=== PATIENT | female | born 1955 | race Caucasian/White ===

== ENCOUNTER 2016-12-10 22:30 | Observation (INO) | payer OTHER ==
[~2016-12-10] VITALS: Ht 154.9 cm; Wt 81.4 kg
[2016-12-10] MEDS: SODIUM CHLORIDE 0.9% FLUSH 10 ML FLUSH IV FLUSH SCH (21:00)
[~2016-12-10 22:30] MED LIST: ACETAMINOPHEN 500 MG CPLT PO PRN; AMLO5 PO; ATOR1TAB18 PO; CHOL5000 PO; DEXTROSE 50% IN WATER 50 ML VIAL(D50) IV PRN; GARL1000; GLUCAGON 1 MG/ML VIAL OTHER PRN; LOSA100T2 PO; METF500T PO; MIRTA15 PO; NITROGLYCERIN 0.4 MG SL 25 TABS/BTL SL PRN; PROT40TA PO; SODIUM CHLORIDE 0.9% FLUSH 10 ML FLUSH IV FLUSH PRN; ZOLP5TAB3 PO; fish oil PO
[2016-12-10 22:58] VITALS: PULSE 71
[2016-12-10] MEDS: INSULIN ASPART SUPPLEMENTAL SCALE SQ SCH (23:00)
[2016-12-11] VITALS: BP 153/98; PULSE 70; RESP 18; TEMP 97.5; O2SAT 98
[2016-12-11 03:45] VITALS: BP 141/94; PULSE 111; RESP 20; TEMP 96.5; O2SAT 91
[2016-12-11 04:00] VITALS: BP 147/91; PULSE 73; RESP 18; TEMP 97.4; O2SAT 98
[2016-12-11 08:00] VITALS: PULSE 82
[2016-12-11 08:48] VITALS: BP 174/94; PULSE 67; RESP 15; TEMP 98; O2SAT 98
[2016-12-11] MEDS ORDERED: ASPIRIN 325 MG TAB PO SCH (09:00)
[2016-12-11] MEDS ORDERED: PANTOPRAZOLE SOD 40 MG DELAYED RELEASE TAB PO SCH (09:00)
[2016-12-11] MEDS: SODIUM CHLORIDE 0.9% FLUSH 10 ML FLUSH IV FLUSH SCH (09:00)
[2016-12-11 10:59] LABS: POTASSIUM 3.2 MEQ/L (3.5-5.1)
[2016-12-11] MEDS: INSULIN ASPART SUPPLEMENTAL SCALE SQ SCH (11:00)
[2016-12-11 11:02] LABS: BICARBONATE 25.5 MEQ/L (21.0-32.0); MAGNESIUM 2.1 MG/DL (1.5-2.5)
--- NOTE | 2016-12-11 11:31 | HHI.HP ---
[facility] Jesus Manuel Guan MD Admission Diagnosis Chest tightness, hyperkalemia, syncope Diagnoses: (1) Syncope (2) Chest tightness (3) Hypokalemia Travel History International Travel<30 Days: No Contact w/Intl Traveler <30 Da: No Traveled to Known Affected Are: No History of Present Illness This is a 61-year-old female with past medical history of type 2 diabetes and hyperlipidemia who presented to the [place] emergency department yesterday after having a syncopal event while moving sandbags. The patient had waited in her car for about 3 hours and then started to move sandbags. She started to feel lightheaded and dizzy and then had a syncopal event. Just prior to passing out she also had some mild chest tightness. EKG in the emergency department showed sinus tachycardia with a rate of [address] elevation. Troponins have been negative. The patient has not had any further chest pain since being in the hospital. She denies any recent chest pain or chest tightness. The patient did have a negative exercise stress test last year but she states she was barely able to complete the treadmill. The patient does have a strong family history of coronary artery disease with her brother having had an IN at age 58, her mother and uncles also having coronary artery disease. The patient has never smoked. Patient was also noted to have hypokalemia. She denies any nausea vomiting or diarrhea. She states that she does eat a lot of bananas. 10 point review systems otherwise negative. Review of Systems Except as stated in HPI: all other systems reviewed are Neg Past Family Social History Past Medical History Type 2 diabetes, hypercholesterolemia, sinus congestion with history of sinus surgery, hypertension Past Surgical History Biceps tendon repair, , appendectomy, back surgery, sinus surgery Reported Medications Allergies Coded Allergies Type Severity Reaction Last Updated Verified No Known Allergies 12/10/16 No Active Scripts Medications Dose Route/Sig Max Daily Dose Days Date Category Dose Instructions Zolpidem (Zolpidem Tartrate) 5 Mg Tab 5 Mg PO HS PRN 12/10/16 Reported [fish oil] 1,200 Mg PO 12/10/16 Reported Garlic Oil 1000 (Garlic) 1,000 Mg Cap 12/10/16 Reported Norvasc (Amlodipine Besylate) 5 Mg Tab 5 Mg PO DAILY 12/10/16 Reported Atorvastatin (Atorvastatin Calcium) 80 Mg Tab 80 Mg PO HS 12/10/16 Reported Losartan-Hydrochlorothiazide 100-25 Mg Tab 1 Tab PO DAILY 12/10/16 Reported Mirtazapine 15 Mg Tab 15 Mg PO HS 12/10/16 Reported Metformin (Metformin HCl) 500 Mg Tab 500 Mg PO BIDPC 12/10/16 Reported With meals Protonix (Pantoprazole Sodium) 40 Mg Tab 40 Mg PO DAILY 12/10/16 Reported Vitamin D3 (Cholecalciferol) 5,000 Unit Cap 5,000 Units PO DAILY 12/10/16 Reported Allergies: Coded Allergies: No Known Allergies (Unverified , 12/10/16) Family History As per history of present illness Social History She is . No alcohol tobacco or drug use. Physical Exam Vital Signs Vital Signs Date Time Temp Pulse Resp B/P (MAP) Pulse Ox O2 Delivery O2 Flow Rate FiO2 12/11/16 08:48 98.0 67 15 174/94 (120) 98 12/11/16 08:00 82 12/11/16 04:00 97.4 73 18 147/91 (109) 98 12/11/16 03:45 96.5 111 20 141/94 (110) 91 12/11/16 00:00 97.5 70 18 153/98 (116) 98 12/10/16 22:58 71 Physical Exam GENERAL: Well-nourished, well-developed pleasant obese female patient. SKIN: Warm and dry. HEAD: Normocephalic. EYES: No scleral icterus. No injection or drainage. NECK: Supple, trachea midline. No JVD or lymphadenopathy. CARDIOVASCULAR: Regular rate and rhythm without murmurs, gallops, or rubs. RESPIRATORY: Breath sounds equal bilaterally. No accessory muscle use. GASTROINTESTINAL: Abdomen soft, non-tender, nondistended. EXTREMITIES: No cyanosis, or edema. NEUROLOGICAL: Awake, alert, and oriented x 3. Non-focal. Laboratory Laboratory Tests Test 12/10/16 23:10 12/11/16 03:45 Total Creatine Kinase 166 157 Troponin I 0.04 0.02 Blood Urea Nitrogen 16 Creatinine 0.74 Random Glucose 102 Calcium Level 8.4 Magnesium Level 2.1 Sodium Level 143 Potassium Level 3.2 Chloride Level 107 Carbon Dioxide Level 25.5 Anion Gap 11 Estimat Glomerular Filtration Rate 80 Result Diagram: 12/11/16 0345 Caprini VTE Risk Assessment Caprini VTE Risk Assessment: Mod/High Risk (score >= 2) Caprini Risk Assessment Model Point Value = 1 Point Value = 2 Point Value = 3 Point Value = 5 Age 41-60 Minor surgery BMI > 25 kg/m2 Swollen legs Varicose veins or History of unexplained or recurrent spontaneous Oral contraceptives or hormone replacement Sepsis (< 1 month) Serious lung disease, including pneumonia (< 1 month) Abnormal pulmonary function Acute myocardial infarction Congestive heart failure (< 1 month) History of inflammatory bowel disease Medical patient at bed rest Age 61-74 Arthroscopic surgery Major open surgery (> 45 min) Laparoscopic surgery (> 45 min) Malignancy Confined to bed (> 72 hours) Immobilizing plaster cast Central venous access Age >= 75 History of VTE Family history of VTE Factor V Leiden Prothrombin [id number] Lupus anticoagulant Anticardiolipin antibodies Elevated serum homocysteine Heparin-induced thrombocytopenia Other congenital or acquired thrombophilia Stroke (< 1 month) Elective arthroplasty Hip, pelvis, or leg fracture Acute spinal cord injury (< 1 month) Prophylaxis Regimen Total Risk Factor Score Risk Level Prophylaxis Regimen 0-1 Low Early ambulation 2 Moderate Order ONE of the following: *Sequential Compression Device (SCD) *Heparin 5000 units SQ BID 3-4 Higher Order ONE of the following medications: *Heparin 5000 units SQ TID *Enoxaparin/Lovenox 40 mg SQ daily (WT < 150 kg, CrCl > 30 mL/min) *Enoxaparin/Lovenox 30 mg SQ daily (WT < 150 kg, CrCl > 10-29 mL/min) *Enoxaparin/Lovenox 30 mg SQ BID (WT < 150 kg, CrCl > 30 mL/min) AND/OR *Sequential Compression Device (SCD) 5 or more Highest Order ONE of the following medications: *Heparin 5000 units SQ TID (Preferred with Epidurals) *Enoxaparin/Lovenox 40 mg SQ daily (WT < 150 kg, CrCl > 30 mL/min) *Enoxaparin/Lovenox 30 mg SQ daily (WT < 150 kg, CrCl > 10-29 mL/min) *Enoxaparin/Lovenox 30 mg SQ BID (WT < 150 kg, CrCl > 30 mL/min) AND *Sequential Compression Device (SCD) Assessment and Plan Assessment and Plan -Syncope while moving sand bags yesterday. Orthostatics were negative. EKG negative. She did have an episode of chest tightness. Given the strong family history of coronary artery disease and her risk factors believe it is prudent to proceed with Latricia scan stress test. Additionally will check echocardiogram. Would recommend an aspirin daily. -Hypokalemia. Improved to 3.2. Will check magnesium and give additional potassium supplementation. -Type 2 diabetes. Insulin sliding scale for now. -Hyperlipidemia. She states she was recently taken off her cholesterol medication by her primary care physician. -Hypertension resume home medications. -DVT prophylaxis with SCDs. Chrissie Lazar MD Dec 11, 2016 11:31
[2016-12-11] MEDS ORDERED: GLUCAGON 1 MG/ML VIAL OTHER PRN (11:45)
[2016-12-11] MEDS ORDERED: DEXTROSE 50% IN WATER 50 ML VIAL(D50) IV PRN (11:45)
[2016-12-11] MEDS ORDERED: ZOLPIDEM TARTRATE 5 MG TAB PO PRN (11:45)
[2016-12-11] MEDS ORDERED: LOSARTAN 50 MG TAB PO SCH (13:00)
[2016-12-11] MEDS ORDERED: amLODIPine BESYLATE 5 MG TAB PO SCH (13:00)
[2016-12-11] MEDS ORDERED: HYDROCHLOROTHIAZIDE 25 MG TAB PO SCH (13:00)
[2016-12-11 13:35] VITALS: BP 184/93; PULSE 65; RESP 15; TEMP 97.4; O2SAT 98
[2016-12-11] MEDS ORDERED: REGADENOSON INJ 0.4 MG/5 ML SYR IV ONE (15:06)
--- NOTE | 2016-12-11 15:55 | RADRPT ---
EXAM DATE/TIME: 12/11/2016 14:33 [place] COMPARISON: No previous studies available for comparison. INDICATIONS : Chest pain with dyspnea, lightheaded and near syncope. Angina. Abnormal EKG. DOSE: 25.9 mCi Tc99m Myoview at stress. 8.5 mCi Tc99m Myoview at rest. 0.4 mg Lexiscan STRESS SYMPTOMS: Nausea, dyspnea and headache. EJECTION FRACTION: > 70% MEDICAL HISTORY : Hypertension. Diabetes mellitus type 2. SURGICAL HISTORY : Hysterectomy. Appendectomy. ENCOUNTER: Initial ACUITY: 1 day PAIN SCALE: 6/10 LOCATION: Substernal chest TECHNIQUE: The patient underwent pharmacologic stress with infusion of prescribed dose. Continuous ECG tracing was monitored during stress. Gated SPECT imaging was performed after stress and conventional SPECT i maging was performed at rest. The examination was performed on a SPECT/CT scanner, both attenuation and non-corrected datasets were reviewed. FINDINGS: DISTRIBUTION: The maximum perfused segment at stress is in the posteroseptal wall. PERFUSION STUDY: The pattern of perfusion at stress is within normal limits. GATED STUDY: There is intact wall motion and thickening without hypokinetic or dyskinetic segments. CONCLUSION: No appreciable ischemia. RISK CATEGORY: Low (<1% Annual Mortality Rate) Jean Paul Babin MD on December 11, 2016 at 15:53 Board Certified Radiologist. This report was verified electronically.
[2016-12-11] MEDS ORDERED: INSULIN ASPART SUPPLEMENTAL SCALE SQ SCH (16:00)
[2016-12-11] MEDS ORDERED: MIRTAZAPINE 15 MG TAB PO SCH (21:00)
[2016-12-11] MEDS ORDERED: ATORVASTATIN 40 MG TAB PO SCH (21:00)
[2016-12-12] MEDS ORDERED: CHOLECALCIFEROL (VIT D3) 5000 UNIT CAP PO SCH (09:00)
[2016-12-12] MEDS ORDERED: PANTOPRAZOLE SOD 40 MG DELAYED RELEASE TAB PO SCH (09:00)
[2016-12-15] MEDS ORDERED: FISH1200 PO (11:22)
== END 2016-12-11 18:34 | disposition home or self-care (01) ==
LOC: PHEDDLT 22:30 → PH3A 22:40
PROVIDERS: ADMIT Family Medicine; ATTEND Family Medicine
DX: R07.89 Other chest pain (principal); E87.5 Hyperkalemia; R55 Syncope and collapse; E87.6 Hypokalemia; I10 Essential (primary) hypertension; E78.00 Pure hypercholesterolemia, unspecified; R94.31 Abnormal electrocardiogram [ECG] [EKG]; E11.9 Type 2 diabetes mellitus without complications; Z79.84 Long term (current) use of oral hypoglycemic drugs; Z82.49 Family history of ischemic heart disease and other diseases of the circulatory system
CPT/HCPCS: 71010; 71275; 74174; 78452; 80048; 80053; 82550; 82552; 82948; 83735; 84484; 85025; 85610; 85730; 93005; 93017; 96360; 96361; 99285; A9502; G0378; J2785; J7030; Q9967

== ENCOUNTER 2017-09-24 11:10 | Observation (INO) | payer OTHER ==
[2017-09-24] VITALS (11 sets, daily range): BP systolic 155–203; BP diastolic 79–101; PULSE 52–107; RESP 16–22; TEMP 97.8–98.1; O2SAT 94–100
[~2017-09-24] VITALS: Ht 160 cm; Wt 72.0 kg
[~2017-09-24 11:10] MED LIST changes: -ACETAMINOPHEN 500 MG CPLT PO PRN; -ATOR1TAB18 PO; +ATOR80TA45 PO; -DEXTROSE 50% IN WATER 50 ML VIAL(D50) IV PRN; +FISH1200 PO; -GARL1000; +GARL1000 PO; -GLUCAGON 1 MG/ML VIAL OTHER PRN; -NITROGLYCERIN 0.4 MG SL 25 TABS/BTL SL PRN; -SODIUM CHLORIDE 0.9% FLUSH 10 ML FLUSH IV FLUSH PRN; -fish oil PO
[2017-09-24] MEDS ORDERED: PROCHLORPERAZINE INJ 10 MG/2 ML VIAL IV PUSH ONE (11:30)
[2017-09-24] MEDS ORDERED: SODIUM CHLOR 0.9% 1000 ML INJ 1,000 ML IV ONE ×2 (11:30→14:30)
[2017-09-24] MEDS ORDERED: diphenhydrAMINE HCL 50 MG/ML VIAL IV PUSH ONE (11:30)
--- NOTE | 2017-09-24 11:37 | PD ---
HPI Chief Complaint: Altered Mental Status Time Seen by Provider: 11:14 Travel History International Travel<30 days: No Contact w/Intl Traveler<30days: No Traveled to known affect area: No History of Present Illness HPI 62-year-old female that presents to the ED for evaluation of altered mental status and syncope with headache. Patient reports that she has a history of chronic migraine headaches and hypertension. She takes medications for this usually [id number] remedies. She states that yesterday she had a headache but today she had a headache on her way here to get her from the hospital. Apparently she is picking up her as he recently had a CABG and is being released from the hospital today. Apparently patient got here on her own car and on the parking lot and had an episode of possible syncope and nausea and vomiting. She does not really remember what happened and she is not really good historian. She does not even know how she go into the room she is currently in. Apparently she also call 911 but she does not remember this. She is somewhat difficult to get a history. She appears to be somewhat anxious and complains of headache. Per patient she had some numbness and tingling to her arms and legs. This seems to have improved. She states that she has had something like this in the past in 2017 where she was helping load some sandbags. She denies any chest pain or shortness of breath at this time. She denies any other medical issues. No allergies to medication. She rates her pain is 8 out of 10. Did not took anything for this. PFSH Past Medical History Anxiety: Yes Depression: Yes Cardiovascular Problems: Yes High Cholesterol: Yes Diabetes: Yes Patient Takes Glucophage: Yes Diminished Hearing: No Hypertension: Yes Psychiatric: Yes Tetanus Vaccination: > 5 Years Influenza Vaccination: Yes : 3 Para: 3 Past Surgical History Appendectomy: Yes Hysterectomy: Yes Other Surgery: Yes (right bicep) Social History Alcohol Use: Yes (OCASSIONALLY) Tobacco Use: No Substance Use: No Allergies-Medications (Allergen,Severity, Reaction): Coded Allergies: No Known Allergies (Verified Adverse Reaction, Unknown, 09/24/17) Reported Meds & Prescriptions Reported Meds & Active Scripts Active Reported Fish Oil 1200 mg ([place]-3 Fatty Acids) 360 Mg-1,200 Mg Cap 1 Cap PO DAILY Garlic Oil 1000 (Garlic) 1,000 Mg Cap 1,000 Tab PO DAILY Norvasc (Amlodipine Besylate) 5 Mg Tab 5 Mg PO DAILY Atorvastatin (Atorvastatin Calcium) 80 Mg Tab 80 Mg PO HS Losartan-Hydrochlorothiazide 100-25 Mg Tab 1 Tab PO DAILY Mirtazapine 15 Mg Tab 15 Mg PO HS Metformin (Metformin HCl) 500 Mg Tab 500 Mg PO BIDPC With meals Protonix (Pantoprazole Sodium) 40 Mg Tab 40 Mg PO DAILY Vitamin D3 (Cholecalciferol) 5,000 Unit Cap 5,000 Units PO DAILY Review of Systems Except as stated in HPI: all other systems reviewed are Neg Physical Exam Narrative GENERAL: SKIN: Warm and dry. HEAD: Atraumatic. Normocephalic. EYES: Pupils equal and round 4 mms reactive to light and accommodation. No scleral icterus. No injection or drainage. ENT: No nasal bleeding or discharge. Mucous membranes pink and moist. Tongue is midline. No uvula deviation. NECK: Trachea midline. No JVD. CARDIOVASCULAR: Regular rate and rhythm. No murmurs, S3, S4. RESPIRATORY: No accessory muscle use. Clear to auscultation. Breath sounds equal bilaterally. GASTROINTESTINAL: Abdomen soft, non-tender, nondistended. Hepatic and splenic margins not palpable. MUSCULOSKELETAL: Extremities without clubbing, cyanosis, or edema. No obvious deformities. Full range of motion of the upper and lower extremities bilaterally. 2+ pulses bilaterally. NEUROLOGICAL: Awake and alert and oriented 4. No obvious cranial nerve deficits. Motor grossly within normal limits. Five out of 5 muscle strength in the arms and legs. Normal speech. PSYCHIATRIC: Anxious mood and affect; insight and judgment normal. Data Data Last Documented VS Vital Signs Date Time Temp Pulse Resp B/P (MAP) Pulse Ox O2 Delivery O2 Flow Rate FiO2 09/24/17 13:00 97.8 78 17 175/89 (117) 99 Room Air Orders Orders Electrocardiogram (09/24/17 11:18) Complete Blood Count With Diff (09/24/17 11:18) Comprehensive Metabolic Panel (09/24/17 11:18) Ckmb (Isoenzyme) Profile (09/24/17 11:18) Troponin I (09/24/17 11:18) Prothrombin Time / Inr (Pt) (09/24/17 11:18) Act Partial Throm Time (Ptt) (09/24/17 11:18) Lipase (09/24/17 11:18) Urinalysis - C+S If Indicated (09/24/17 11:18) Magnesium (Mg) (09/24/17 11:18) Thyroid Stimulating Hormone (09/24/17 11:18) Chest, Single Ap (09/24/17 11:18) Ct Brain W/O Iv Contrast(Rout) (09/24/17 11:18) Iv Access Insert/Monitor (09/24/17 11:18) Ecg Monitoring (09/24/17 11:18) Oximetry (09/24/17 11:18) Orthostatic Vital Signs (09/24/17 11:18) Sodium Chlor 0.9% 1000 Ml Inj (Ns 1000 M (09/24/17 11:30) Prochlorperazine Inj (Compazine Inj) (09/24/17 11:30) Diphenhydramine Inj (Benadryl Inj) (09/24/17 11:30) Ketorolac Inj (Toradol Inj) (09/24/17 12:15) Clonidine (Catapres) (09/24/17 12:15) CKMB (09/24/17 11:30) CKMB% (09/24/17 11:30) Place In Observation (09/24/17 ) Vital Signs (Adult) NA.Q4H (09/24/17 13:23) Activity Oob With Assistance (09/24/17 13:23) Break Off Worker / Telemetry NA.Q8H (09/24/17 13:23) Diet Clear Liquid (09/24/17 Lunch) Mri Brain W/O Contrast (09/24/17 ) Us Carotid Arteries Comp Bilat (09/24/17 ) Break Off Worker / Telemetry NA.Q8H (09/24/17 13:23) Portable Eeg (09/24/17 ) Consult Neurology (09/24/17 ) Echo 2d Comp With Doppler (09/24/17 ) Lumbar Puncture (09/24/17 ) Vital Signs (Adult) .On admission (09/24/17 13:26) Notify Radiology (09/24/17 13:26) Csf Index (09/24/17 13:26) Glucose, Csf (09/24/17 13:26) Csf Cell Count + Differential (09/24/17 13:26) Glucose, Csf (09/24/17 ) Total Protein, Csf (09/24/17 13:26) Csf Culture And Gram Stain (09/24/17 13:26) (Hub Use Only)Inp Phy Cons/Ref (09/24/17 ) Consult Pt Eval & Treat (09/24/17 13:30) Ot Request For Service (09/24/17 13:30) Speech Therapy Consult-Eval/Tx (09/24/17 13:30) Nursing Bedside Swallow Assess .ONCE (09/24/17 13:30) Atorvastatin (Lipitor) (09/24/17 21:00) Pantoprazole (Protonix) (09/25/17 09:00) (Nf) Garlic (Garlic Oil 1000) (09/25/17 09:00) (Nf) [place]-3 Fatty Acids (Fish Oil 1200 (09/25/17 09:00) Ns (Bolus) Inj (09/24/17 13:45) Labs Laboratory Tests Test 09/24/17 11:30 09/24/17 13:30 White Blood Count 10.2 TH/MM3 Red Blood Count 5.69 MIL/MM3 Hemoglobin 16.8 GM/DL Hematocrit 48.2 % Mean Corpuscular Volume 84.6 FL Mean Corpuscular Hemoglobin 29.5 PG Mean Corpuscular Hemoglobin Concent 34.8 % Red Cell Distribution Width 13.4 % Platelet Count 404 TH/MM3 Mean Platelet Volume 7.4 FL Neutrophils (%) (Auto) 63.8 % Lymphocytes (%) (Auto) 25.0 % Monocytes (%) (Auto) 6.1 % Eosinophils (%) (Auto) 4.4 % Basophils (%) (Auto) 0.7 % Neutrophils # (Auto) 6.5 TH/MM3 Lymphocytes # (Auto) 2.6 TH/MM3 Monocytes # (Auto) 0.6 TH/MM3 Eosinophils # (Auto) 0.5 TH/MM3 Basophils # (Auto) 0.1 TH/MM3 CBC Comment DIFF FINAL Differential Comment Prothrombin Time 10.1 SEC Prothromb Time International Ratio 1.0 RATIO Activated Partial Thromboplast Time 23.6 SEC Blood Urea Nitrogen 9 MG/DL Creatinine 1.06 MG/DL Random Glucose 162 MG/DL Total Protein 8.3 GM/DL Albumin 4.6 GM/DL Calcium Level 9.4 MG/DL Magnesium Level 2.2 MG/DL Alkaline Phosphatase 76 U/L Aspartate Amino Transf (AST/SGOT) 36 U/L Alanine Aminotransferase (ALT/SGPT) 53 U/L Total Bilirubin 0.5 MG/DL Sodium Level 142 MEQ/L Potassium Level 3.5 MEQ/L Chloride Level 108 MEQ/L Carbon Dioxide Level 16.7 MEQ/L Anion Gap 17 MEQ/L Estimat Glomerular Filtration Rate 52 ML/MIN Total Creatine Kinase 167 U/L Creatine Kinase MB 3.2 NG/ML Troponin I LESS THAN 0.02 NG/ML Lipase 137 U/L Thyroid Stimulating Hormone 3rd Gen 1.750 uIU/ML MDM Medical Decision Making Medical Screen Exam Complete: Yes Emergency Medical Condition: Yes Medical Record Reviewed: Yes Interpretation(s) CBC & BMP Diagram 09/24/17 11:30 Total Protein 8.3 H, Albumin 4.6, Calcium Level 9.4, Magnesium Level 2.2, Alkaline Phosphatase 76, Aspartate Amino Transf (AST/SGOT) 36, Alanine Aminotransferase (ALT/SGPT) 53, Total Bilirubin 0.[address] 09/24/17 1118 Signed Impressions: CONCLUSION: 1. Unremarkable CT scan of the brain. Chest X-Ray 09/24/17 1118 Signed Impressions: CONCLUSION: No acute cardiopulmonary findings. troponin and CKMB negative EKG shows sinus rhythm with no sign of acute ischemia or arrhythmia read by me and attending. Differential Diagnosis Syncope versus headache versus migraine headache versus arrhythmia versus ACS versus hypo-glycemia versus hypertension Narrative Course 62-year-old female that presents to the ED for evaluation of syncope. Patient was properly examined and was found to have signs and symptoms consistent with appears to be syncope and what appears to be headache. Unclear etiology of the symptoms at this time. There is some concern for acute disease. I did review her records and she was here for evaluation of chest pain and syncope and had a chest pain center evaluation within normal stress test. At this time labs and imaging will be ordered. Patient was given IV fluids, Compazine and Benadryl for her headache. Per patient the headache is similar to her previous headaches. We will do CT as she had a syncopal episode. Labs and imaging were done. Patient had improvement of symptoms after pain medication especially of the headache. Unclear as to what happened. Patient has never had a syncopal workup. She was here for chest pain workup last time. The recommend evaluation for syncope and altered mental status secondary to unclear etiology of the symptoms. Case discussed with my attending Dr. Haynes who was made aware of findings and agrees with plan. Case discussed with Dr. Finch who agrees with admission but wants me to do a consult to neurology as well as a EEG per him. Diagnosis Primary Impression: Syncope Qualified Codes: R55 - Syncope and collapse Additional Impression: Altered mental status Qualified Codes: R41.82 - Altered mental status, unspecified Admitting Information Admitting Physician Requests: Observation Wild Castro Sep 24, 2017 11:37
[2017-09-24 11:50] LABS: AUTOMATED NEUTROPHIL # 6.5 TH/MM3 (1.8-7.7); BASOPHIL # 0.1 TH/MM3 (0-0.2); BASOPHIL % 0.7 % (0.0-2.0); EOSINOPHIL # 0.5 TH/MM3 (0-0.4); EOSINOPHIL % 4.4 % (0.0-4.0); HEMATOCRIT 48.2 % (35.0-46.0); HEMOGLOBIN 16.8 GM/DL (11.6-15.3); LYMPHOCYTE # 2.6 TH/MM3 (1.0-4.8); MEAN CELL VOLUME 84.6 FL (80.0-100.0); MEAN CORPUSCULAR HEMOGLOBIN 29.5 PG (27.0-34.0); MEAN CORPUSCULAR HGB CONC 34.8 % (32.0-36.0); MEAN PLATELET VOLUME 7.4 FL (7.0-11.0); MONO % 6.1 % (0.0-8.0); MONOCYTE # 0.6 TH/MM3 (0-0.9); NEUT % 63.8 % (16.0-70.0); PLATELET COUNT 404 TH/MM3 (150-450); RED BLOOD COUNT 5.69 MIL/MM3 (4.00-5.30); RED CELL DISTRIBUTION WIDTH 13.4 % (11.6-17.2); WHITE BLOOD COUNT 10.2 TH/MM3 (4.0-11.0)
--- NOTE | 2017-09-24 11:53 | RADRPT ---
EXAM DATE: 09/24/2017 11:46 AM EDT AGE/SEX: 62 years / Female INDICATIONS: Short of breath. CLINICAL DATA: This is the patient's initial encounter. Patient reports that signs and symptoms have been present for 1 day and indicates a pain score of 0/10. MEDICAL/SURGICAL HISTORY: . Hypertension. Diabetes mellitus type 2. . Hysterectomy. Appendect shena COMPARISON: [facility], CHEST SINGLE AP, 12/10/2016. . FINDINGS: A single AP view of the chest demonstrates the lungs to be symmetrically aerated without evidence of mass, infiltrate or effusion. The cardiomediastinal contours are unremarkable. Osseous structures a re intact. CONCLUSION: No acute cardiopulmonary findings. Electronically signed by: Bernard Allred MD 09/24/2017 11:52 AM EDT
[2017-09-24 11:58] LABS: PROTHROMBIN TIME - PATIENT 10.1 SEC (9.8-11.6)
--- NOTE | 2017-09-24 12:04 | RADRPT ---
EXAM DATE: 09/24/2017 11:58 AM EDT AGE/SEX: 62 years / Female INDICATIONS: Syncope. CLINICAL DATA: This is the patient's initial encounter. Patient reports that signs and symptoms have been present for 1 day and indicates a pain score of 4/10. MEDICAL/SURGICAL HISTORY: Hypertension. Diabetes. Appendectomy. Hysterectomy. RADIATION DOSE: 36.22 CTDI (mGy) COMPARISON: No prior exams available for comparison. TECHNIQUE: CT of the head without contrast. Using automated exposure control and adjustment of the mA and/or kV according to patient size, radiation dose was kept as low as reasonably achievable to ob tain optimal diagnostic quality images. DICOM format image data is available electronically for revi ew and comparison. FINDINGS: Cerebrum: The ventricles are normal for age. No evidence of midline shift, mass lesion, hemorrhage or acute infarction. No extraaxial fluid collections are seen. Posterior Fossa: The cerebellum and brainstem are intact. The 4th ventricle is midline. The cerebe llopontine angle is unremarkable. Extracranial: The visualized portion of the orbits is intact. Skull: The calvaria is intact. No evidence of skull fracture. CONCLUSION: 1. Unremarkable CT scan of the brain. Electronically signed by: Chucho Field MD 09/24/2017 12:03 PM EDT
[2017-09-24 12:05] LABS: ALBUMIN 4.6 GM/DL (3.4-5.0); ALT (GPT) 53 U/L (10-53); AST (GOT) 36 U/L (15-37); BICARBONATE 16.7 MEQ/L (21.0-32.0); BLOOD UREA NITROGEN 9 MG/DL (7-18); CALCIUM 9.4 MG/DL (8.5-10.1); CHLORIDE 108 MEQ/L (98-107); CREATININE 1.06 MG/DL (0.50-1.00); GLOMERULAR FILTRATION RATE 52 ML/MIN (>89); GLUCOSE,RANDOM 162 MG/DL (74-106); MAGNESIUM 2.2 MG/DL (1.5-2.5); SODIUM (NA) 142 MEQ/L (136-145)
[2017-09-24 12:15] LABS: ALKALINE PHOSPHATASE 76 U/L (45-117); TOTAL BILIRUBIN ADULT 0.5 MG/DL (0.2-1.0); TOTAL PROTEIN 8.3 GM/DL (6.4-8.2); TROPONIN I LESS THAN 0.02 NG/ML (0.02-0.05)
[2017-09-24] MEDS ORDERED: cloNIDine HCL 0.1 MG TAB PO ONE (12:15)
[2017-09-24] MEDS ORDERED: KETOROLAC TROMETHAMINE 30 MG/ML (IVP) VIAL IV PUSH ONE (12:15)
--- NOTE | 2017-09-24 13:41 | HHI.HP ---
[facility] Primary [facility] Physician Unknown Admission Diagnosis Diagnoses: Chief Complaint: headache/LOC Travel History International Travel<30 Days: No Contact w/Intl Traveler <30 Da: No Traveled to Known Affected Are: No History of Present Illness 62-year-old white female being admitted for loss of consciousness. Patient was in her usual state of health until she started experiencing a headache and some vomiting yesterday. This subsided on its own. This morning she was on her way to the hospital to pick her own up but she again experienced a occipital headache with some nausea and vomiting along with realizing she had difficulty swallowing. She reports having vague memory when she arrives into the hospital parking lot and was sitting in the car when she thinks she had passed out, she had not try to get out the vehicle at that time. She was able to speed dial her who was hospitalized here, then called his daughter and family member saying that she stuck in the parking lot. ED emergency response team was called. During this timeframe patient says she vaguely remembers trying to honked the horn, had some left-sided numbness and weakness -overall the entire incident is a memory blur. The only thing the patient clearly recalls is fully coming to consciousness inside the emergency department, at which point she had to take a few minutes to regain her orientation anyway. Says at this time she still has a little headache but is not vomiting anymore. She denies recalling any slurred speech. She thinks she had passed out but is unsure for how long. Denies any tongue biting or urinary incontinence. Patient denies this ever occurring in the past except for one time when she was lifting sandbags on her own and had passed out multiple times. no acute vision changes. In the emergency [employer] head CT was performed which was negative. EKG was performed which I independently reviewed and shows no acute changes. Chest x- ray is negative. Blood work overall is also negative. Patient denies ever having any strokes or mini strokes or abnormal heart rhythms or heart catheterizations in the past. Patient does admit that she was discontinued off of her atorvastatin due to impaired LFTs. Currently her LFTs are good. Review of Systems Except as stated in HPI: all other systems reviewed are Neg Past Family Social History Past Medical History diabetes, HTN cholesterol Acid reflux Past Surgical History sinus surgery right biceps surgery carpal tunnel BL L4-L5 back surgery appendectomy 4 bladder surgeries Allergies: Coded Allergies: No Known Allergies (Verified Allergy, Unknown, 09/24/17) Family History mother [place] Social History denies drinking, drinks ETOH occasionally, denies illicit drug use Physical Exam Vital Signs Vital Signs Date Time Temp Pulse Resp B/P (MAP) Pulse Ox O2 Delivery O2 Flow Rate FiO2 09/24/17 11:40 97 20 191/100 (130) 96 20 181/101 (127) 100 22 195/101 (132) 09/24/17 11:25 89 18 99 Room Air 09/24/17 11:25 18 99 Room Air 09/24/17 11:10 97.8 107 22 203/92 (129) 100 Physical Exam VS: afebrile GENERAL: Sitting in bed, awake, alert, no acute distress, ambulating down to the bathroom on her own with nursing without any gait disturbances SKIN: Warm and dry. EYES: Pupils equal and round. No scleral icterus. No injection or drainage. ENT: No nasal bleeding or discharge. Mucous membranes pink and moist. CARDIOVASCULAR: Regular rate and rhythm. no murmurs RESPIRATORY: No accessory muscle use. Clear to auscultation. Breath sounds equal bilaterally. GASTROINTESTINAL: Abdomen soft, non-tender, nondistended. Extremities: No clubbing, cyanosis, or edema. No obvious deformities. MUSCULOSKELETAL: grossly intact ROM with 5/5 strength in upper and lower extremities proximally; adequate muscle bulk and tone for age and habitus NEUROLOGICAL: Awake and alert. No obvious cranial nerve deficits. No facial droop nor slurred speech noted. 2+ patellar reflexes bilaterally. No facial droop, no slurred speech, uvula and tongue in midline. Finger to nose to finger intact bilaterally. PSYCHIATRIC: Appropriate mood and affect; insight and judgment normal. Laboratory Laboratory Tests Test 09/24/17 11:30 White Blood Count 10.2 Red Blood Count 5.69 Hemoglobin 16.8 Hematocrit 48.2 Mean Corpuscular Volume 84.6 Mean Corpuscular Hemoglobin 29.5 Mean Corpuscular Hemoglobin Concent 34.8 Red Cell Distribution Width 13.4 Platelet Count 404 Mean Platelet Volume 7.4 Neutrophils (%) (Auto) 63.8 Lymphocytes (%) (Auto) 25.0 Monocytes (%) (Auto) 6.1 Eosinophils (%) (Auto) 4.4 Basophils (%) (Auto) 0.7 Neutrophils # (Auto) 6.5 Lymphocytes # (Auto) 2.6 Monocytes # (Auto) 0.6 Eosinophils # (Auto) 0.5 Basophils # (Auto) 0.1 CBC Comment DIFF FINAL Differential Comment Prothrombin Time 10.1 Prothromb Time International Ratio 1.0 Activated Partial Thromboplast Time 23.6 Blood Urea Nitrogen 9 Creatinine 1.06 Random Glucose 162 Total Protein 8.3 Albumin 4.6 Calcium Level 9.4 Magnesium Level 2.2 Alkaline Phosphatase 76 Aspartate Amino Transf (AST/SGOT) 36 Alanine Aminotransferase (ALT/SGPT) 53 Total Bilirubin 0.5 Sodium Level 142 Potassium Level 3.5 Chloride Level 108 Carbon Dioxide Level 16.7 Anion Gap 17 Estimat Glomerular Filtration Rate 52 Total Creatine Kinase 167 Creatine Kinase MB 3.2 Troponin I LESS THAN 0.02 Lipase 137 Thyroid Stimulating Hormone 3rd Gen 1.750 Result Diagram: 09/24/17 1130 09/24/17 1130 Imaging Last Impressions Head CT 09/24/17 1118 Signed Impressions: CONCLUSION: 1. Unremarkable CT scan of the brain. Chest X-Ray 09/24/171117 Signed Impressions: CONCLUSION: No acute cardiopulmonary findings. Caprini VTE Risk Assessment Caprini VTE Risk Assessment: Mod/High Risk (score >= 2) VTE Pharm Contraindication: High risk for bleeding Caprini Risk Assessment Model Point Value = 1 Point Value = 2 Point Value = 3 Point Value = 5 Age 41-60 Minor surgery BMI > 25 kg/m2 Swollen legs Varicose veins or History of unexplained or recurrent spontaneous Oral contraceptives or hormone replacement Sepsis (< 1 month) Serious lung disease, including pneumonia (< 1 month) Abnormal pulmonary function Acute myocardial infarction Congestive heart failure (< 1 month) History of inflammatory bowel disease Medical patient at bed rest Age 61-74 Arthroscopic surgery Major open surgery (> 45 min) Laparoscopic surgery (> 45 min) Malignancy Confined to bed (> 72 hours) Immobilizing plaster cast Central venous access Age >= 75 History of VTE Family history of VTE Factor V Leiden Prothrombin [id number] Lupus anticoagulant Anticardiolipin antibodies Elevated serum homocysteine Heparin-induced thrombocytopenia Other congenital or acquired thrombophilia Stroke (< 1 month) Elective arthroplasty Hip, pelvis, or leg fracture Acute spinal cord injury (< 1 month) Prophylaxis Regimen Total Risk Factor Score Risk Level Prophylaxis Regimen 0-1 Low Early ambulation 2 Moderate Order ONE of the following: *Sequential Compression Device (SCD) *Heparin 5000 units SQ BID 3-4 Higher Order ONE of the following medications: *Heparin 5000 units SQ TID *Enoxaparin/Lovenox 40 mg SQ daily (WT < 150 kg, CrCl > 30 mL/min) *Enoxaparin/Lovenox 30 mg SQ daily (WT < 150 kg, CrCl > 10-29 mL/min) *Enoxaparin/Lovenox 30 mg SQ BID (WT < 150 kg, CrCl > 30 mL/min) AND/OR *Sequential Compression Device (SCD) 5 or more Highest Order ONE of the following medications: *Heparin 5000 units SQ TID (Preferred with Epidurals) *Enoxaparin/Lovenox 40 mg SQ daily (WT < 150 kg, CrCl > 30 mL/min) *Enoxaparin/Lovenox 30 mg SQ daily (WT < 150 kg, CrCl > 10-29 mL/min) *Enoxaparin/Lovenox 30 mg SQ BID (WT < 150 kg, CrCl > 30 mL/min) AND *Sequential Compression Device (SCD) Assessment and Plan Assessment and Plan 62-year-old white female being entered for loss of consciousness and strokelike symptoms. Loss of consciousness -Seizure cannot be ruled out, nor can cardiovascular syncope.Be ruled out -EKG unremarkable, will place on telemetry -EEG ordered, neurology consultation to help decipher whether patient truly needs antiepileptic drug treatment and/or seizure precautions upon discharge Headache -migraine vs possible ICH -Need to rule out brain bleed given triad of headache nausea vomiting and EGG PRODUCER alteration -Head CT is negative, discussed with interventional radiology, ordering lumbar puncture and sequential CSF cell counts - if significantly elevated RBCs persistent or xanthochromia present then consult NSG -neurochecks; if symptoms recur repeat STAT CT head Left-sided numbness/tingling/weakness -In the context of above need to rule out acute stroke -Head MRI, carotid ultrasounds, echocardiogram, telemetry -May start aspirin once LP rules out possibility of brain bleed, permissive HTN for now until CSF results and MRI results return -PT/OT/ST Diabetes -Low-dose sliding scale with Accu-Cheks Hypertension -Engage in permissive hypertension for now unless neurology disagrees scds Emeka Reveles MD Sep 24, 2017 13:41
[2017-09-24 14:11] LABS: AMORPHOUS SEDIMENT, URINE RARE; BILIRUBIN, URINE NEG (NEG); BLOOD, URINE NEG (NEG); GLUCOSE,URINE NEG (NEG); HYALINE CAST, URINE 4 /lpf (RARE); KETONE, URINE NEG (NEG); MUCUS URINE FEW /lpf (OCC); NITRITE,URINE NEG (NEG); SQUAMOUS EPITHELIAL CELL URINE 1 /hpf (0-5); URINE COLOR YELLOW (YELLW/STRAW); URINE LEUKOCYTE ESTERASE NEG (NEG)
--- NOTE | 2017-09-24 14:58 | PD ---
Data Data Last Documented VS Vital Signs Date Time Temp Pulse Resp B/P (MAP) Pulse Ox O2 Delivery O2 Flow Rate FiO2 09/24/17 13:14 17 09/24/17 13:00 97.8 78 175/89 (117) 99 Room Air Orders Orders Electrocardiogram (09/24/17 11:18) Complete Blood Count With Diff (09/24/17 11:18) Comprehensive Metabolic Panel (09/24/17 11:18) Ckmb (Isoenzyme) Profile (09/24/17 11:18) Troponin I (09/24/17 11:18) Prothrombin Time / Inr (Pt) (09/24/17 11:18) Act Partial Throm Time (Ptt) (09/24/17 11:18) Lipase (09/24/17:18) Urinalysis - C+S If Indicated (09/24/17 11:18) Magnesium (Mg) (09/24/17 11:18) Thyroid Stimulating Hormone (09/24/17 11:18) Chest, Single Ap (09/24/17 11:18) Ct Brain W/O Iv Contrast(Rout) (09/24/17 11:18) Iv Access Insert/Monitor (09/24/17 11:18) Ecg Monitoring (09/24/17 11:18) Oximetry (09/24/17 11:18) Orthostatic Vital Signs (09/24/17 11:18) Sodium Chlor 0.9% 1000 Ml Inj (Ns 1000 M (09/24/17 11:30) Prochlorperazine Inj (Compazine Inj) (09/24/17 11:30) Diphenhydramine Inj (Benadryl Inj) (09/24/17 11:30) Ketorolac Inj (Toradol Inj) (09/24/17 12:15) Clonidine (Catapres) (09/24/17 12:15) CKMB (09/24/17 11:30) CKMB% (09/24/17 11:30) Place In Observation (09/24/17 ) Vital Signs (Adult) NA.Q4H (09/24/17 13:23) Activity Oob With Assistance (09/24/17 13:23) Cork Slabs Sawyer / Telemetry NA.Q8H (09/24/17 13:23) Diet Clear Liquid (09/24/17 Lunch) Mri Brain W/O Contrast (09/24/17 ) Us Carotid Arteries Comp Bilat (09/24/17 ) Cork Slabs Sawyer / Telemetry NA.Q8H (09/24/17 13:23) Portable Eeg (09/24/17 ) Consult Neurology (09/24/17 ) Echo 2d Comp With Doppler (09/24/17 ) Lumbar Puncture (09/24/17 ) Vital Signs (Adult) .On admission (09/24/17 13:26) Notify Radiology (09/24/17 13:26) Csf Index (09/24/17 13:26) Glucose, Csf (09/24/17 13:) Csf Cell Count + Differential (09/24/17:) Glucose, Csf (09/24/17 ) Total Protein, Csf (09/24/17 13:) Csf Culture And Gram Stain (09/24/17:) (Hub Use Only)Inp Phy Cons/Ref (09/24/17 ) Consult Pt Eval & Treat (09/24/17 13:30) Ot Request For Service (09/24/17 13:30) Speech Therapy Consult-Eval/Tx (09/24/17 13:30) Nursing Bedside Swallow Assess .ONCE (09/24/17 13:30) Atorvastatin (Lipitor) (09/24/17 21:00) Pantoprazole (Protonix) (09/25/17 09:00) (Nf) Garlic (Garlic Oil 1000) (09/25/17 09:00) (Nf) Lane-3 Fatty Acids (Fish Oil 1200 (09/25/17 09:00) Sodium Chlor 0.9% 1000 Ml Inj (Ns 1000 M (09/24/17 14:30) Neuro Checks . ORDERED (09/24/17 13:42) Admit Order (Ed Use Only) (09/24/17 13:45) Labs Laboratory Tests Test 09/24/17 11:30 09/24/17 13:30 White Blood Count 10.2 TH/MM3 Red Blood Count 5.69 MIL/MM3 Hemoglobin 16.8 GM/DL Hematocrit 48.2 % Mean Corpuscular Volume 84.6 FL Mean Corpuscular Hemoglobin 29.5 PG Mean Corpuscular Hemoglobin Concent 34.8 % Red Cell Distribution Width 13.4 % Platelet Count 404 TH/MM3 Mean Platelet Volume 7.4 FL Neutrophils (%) (Auto) 63.8 % Lymphocytes (%) (Auto) 25.0 % Monocytes (%) (Auto) 6.1 % Eosinophils (%) (Auto) 4.4 % Basophils (%) (Auto) 0.7 % Neutrophils # (Auto) 6.5 TH/MM3 Lymphocytes # (Auto) 2.6 TH/MM3 Monocytes # (Auto) 0.6 TH/MM3 Eosinophils # (Auto) 0.5 TH/MM3 Basophils # (Auto) 0.1 TH/MM3 CBC Comment DIFF FINAL Differential Comment Prothrombin Time 10.1 SEC Prothromb Time International Ratio 1.0 RATIO Activated Partial Thromboplast Time 23.6 SEC Blood Urea Nitrogen 9 MG/DL Creatinine 1.06 MG/DL Random Glucose 162 MG/DL Total Protein 8.3 GM/DL Albumin 4.6 GM/DL Calcium Level 9.4 MG/DL Magnesium Level 2.2 MG/DL Alkaline Phosphatase 76 U/L Aspartate Amino Transf (AST/SGOT) 36 U/L Alanine Aminotransferase (ALT/SGPT) 53 U/L Total Bilirubin 0.5 MG/DL Sodium Level 142 MEQ/L Potassium Level 3.5 MEQ/L Chloride Level 108 MEQ/L Carbon Dioxide Level 16.7 MEQ/L Anion Gap 17 MEQ/L Estimat Glomerular Filtration Rate 52 ML/MIN Total Creatine Kinase 167 U/L Creatine Kinase MB 3.2 NG/ML Troponin I LESS THAN 0.02 NG/ML Lipase 137 U/L Thyroid Stimulating Hormone 3rd Gen 1.750 uIU/ML Urine Color YELLOW Urine Turbidity HAZY Urine pH 7.0 Urine Specific Zortman 1.008 Urine Protein 100 mg/dL Urine Glucose (UA) NEG mg/dL Urine Ketones NEG mg/dL Urine Occult Blood NEG Urine Nitrite NEG Urine Bilirubin NEG Urine Urobilinogen LESS THAN 2 mg/dL Urine Leukocyte Esterase NEG Urine RBC 1 /hpf Urine WBC 1 /hpf Urine Squamous Epithelial Cells 1 /hpf Urine Amorphous Sediment RARE Urine Hyaline Casts 4 /lpf Urine Mucus FEW /lpf Microscopic Urinalysis Comment CULT NOT INDICATED MDM Supervised Visit with RASHID: Yes Narrative Course I, Dr. Lane, have reviewed the advance practice practitioner's documentation and am in agreement, met with the patient face to face, made the diagnosis, and the medical decision making was done by me. *My assessment and Findings: Patient had a syncopal type event. The details are somewhat murky. Extensive workup here was done. Patient will be hospitalized to the hospitalist for further evaluation. Diagnosis Primary Impression: Syncope Qualified Codes: R55 - Syncope and collapse Additional Impression: Altered mental status Qualified Codes: R41.82 - Altered mental status, unspecified Oumar Lane MD Sep 24, 2017 14:58
--- NOTE | 2017-09-24 16:15 | RADRPT ---
EXAM DATE: 09/24/2017 4:12 PM EDT AGE/SEX: 62 years / Female INDICATIONS: Patient experiencing headache with vomiting and passed out. CLINICAL DATA: This is the patient's initial encounter. Patient reports that signs and symptoms have been present for 2 days and indicates a pain score of 4/10. MEDICAL/SURGICAL HISTORY: Diabetes. Hypertension. CholesterolAcid Reflux . Sinus surgeryRight biceps surgeryCarpal Tunnel BLL4-5 back surgeryAppendectomyC-section4 Bladder surgeries COMPARISON: No prior exams available for comparison. FLUORO TIME (min): .2 IMAGE SERIES: 1 ACCESS SITE: L4-5 LUMBAR PUNCTURE TIME: 1550 hours OPENING PRESSURE: 23.5 cm of water FLUID: Total volume of 11 cc of clear fluid was removed. Fluid was sent to lab for ordered studies. . . PROCEDURE: 1. Fluoroscopic guided lumbar puncture. 2. Recording of opening pressure. The risks, benefits and alternatives to the procedure were explained and verbal and written consent w as obtained. The site was prepped in sterile fashion. Full sterile technique was used, including ca p, mask, sterile gloves and gown and a large sterile sheet. Hand hygiene and 2% chlorhexidine and/or betadine/alcohol prep was utilized per protocol for cutaneous antisepsis. The skin and subcutaneous tissues were infiltrated with local anesthetic solution. With fluoroscopic guidance the lumbar thecal sac was punctured at the above level described above and the opening pressure was recorded. The above described fluid was removed without difficulty. The patient tolerated the procedure well and there were no complications. CONCLUSION: 1. Uncomplicated fluoroscopically guided lumbar puncture with pressures as above. Electronically signed by: Everardo Goldberg MD 09/24/2017 4:14 PM EDT
[2017-09-24 16:34] LABS: TOTAL PROTEIN,CSF 37.4 MG/DL (15.0-45.0)
[2017-09-24 18:56] LABS: CSF LYMPHOCYTES 70 %; CSF MONOCYTES 30 %; CSF NEUTROPHILS 0 %; RBC TUBE #1 3 /MM3; SUPERNATE COLOR TUBE #1 CLEAR (CLEAR); WBC TUBE #1 3 /MM3 (0-10)
[2017-09-24 19:01] LABS: RBC TUBE #2 2 /MM3; WBC TUBE #2 2 /MM3 (0-10)
[2017-09-24 19:02] LABS: CSF LYMPHOCYTES 80 %; CSF MONOCYTES 20 %; CSF NEUTROPHILS 0 %
[2017-09-24 19:04] LABS: CSF NEUTROPHILS 0 %; RBC TUBE #3 2 /MM3; WBC TUBE #3 3 /MM3 (0-10)
[2017-09-24 19:05] LABS: CSF LYMPHOCYTES 75 %; CSF MONOCYTES 25 %
[2017-09-24 19:06] LABS: RBC TUBE #4 3 /MM3; WBC TUBE #4 6 /MM3 (0-10)
[2017-09-24 19:07] LABS: CSF EOSINOPHILS 1 %; CSF LYMPHOCYTES 78 %; CSF MONOCYTES 21 %; CSF NEUTROPHILS 0 %
[2017-09-24] MEDS: ATORVASTATIN 80 MG TAB PO SCH (20:22)
--- NOTE | 2017-09-24 22:52 | RADRPT ---
EXAM DATE: 09/24/2017 10:33 PM EDT AGE/SEX: 62 years / Female INDICATIONS: Transischemic attack. CLINICAL DATA: This is the patient's initial encounter. Patient reports that signs and symptoms have been present for 1 day and indicates a pain score of 0/10. MEDICAL/SURGICAL HISTORY: . Hypercholesterol. HTN. Diabetic. Appendectomy. Hysterectomy. Le ft foot surgery. COMPARISON: [facility], US ABDOMEN LIVER, 08/06/2017. . VELOCITY PARAMETERS: ICA/CCA Ratio: Right 1.14 , Left 3.39 ICA: Right 123 cm/sec, Left 309 cm/sec CCA: Right 108 cm/sec, Left 91 cm/sec ECA: Right 199 cm/sec, Left 391 cm/sec Vertebral: Right 79 cm/sec antegrade, Left 64 cm/sec antegrade FINDINGS: Right Carotid: Mild arteriosclerotic plaque is visualized.The waveforms are within normal limits. Left Carotid: Mild arteriosclerotic plaque is visualized. There is marked elevation of the velocitie s and ratios on the left corresponding to greater than 70% stenosis. Other: None. CONCLUSION: Right Internal Carotid Artery: No evidence of hemodynamically significant lesion with less than 50% s tenosis. Left Internal Carotid Artery: Findings of high-grade stenosis greater than 70%. CT angiography of the cervicobrachial arch and carotid arteries is recommended for further evaluation if clinically indica rachelle. Electronically signed by: Roque Cisneros MD 09/24/2017 10:51 PM EDT
[2017-09-25] VITALS (9 sets, daily range): BP systolic 143–198; BP diastolic 83–96; PULSE 71–201; RESP 16–18; TEMP 98–98.5; O2SAT 95–98
[2017-09-25] MEDS: PANTOPRAZOLE SOD 40 MG DELAYED RELEASE TAB PO SCH (07:48)
[2017-09-25] MEDS: LOSARTAN 50 MG TAB PO SCH (07:48)
--- NOTE | 2017-09-25 07:53 | HHI.PR ---
Subjective Remarks Pt seen and examined in follow-up for occipital headache and LOC. Pt continues to have a dull b/l occipital headache. Denies associated neck stiffness, photophobia, or phonophobia. She denies dizziness, chest pain, or shortness of breath. Objective Vital Signs Date Time Temp Pulse Resp B/P (MAP) Pulse Ox O2 Delivery O2 Flow Rate FiO2 09/25/17 07:27 98.2 72 18 185/91 (122) 95 09/25/17 03:28 98.0 82 16 171/83 (112) 98 09/24/17 23:41 98.1 76 16 155/80 (105) 95 09/24/17 23:00 52 09/24/17 19:56 98.0 75 17 175/79 (111) 94 09/24/17 17:37 68 09/24/17 15:15 97.8 86 16 158/83 (108) 99 09/24/17 14:20 97.9 89 17 160/85 (110) 99 Room Air 09/24/17 13:58 98.0 89 16 177/93 (121) 99 Room Air 09/24/17 13:14 17 09/24/17 13:00 97.8 78 17 175/89 (117) 99 Room Air 09/24/17 11:40 97 20 191/100 (130) 96 20 181/101 (127) 100 22 195/101 (132) 09/24/17 11:25 89 18 99 Room Air 09/24/17 11:25 18 99 Room Air 09/24/17 11:10 97.8 107 22 203/92 (129) 100 I/O 09/24/17 09/24/17 09/24/17 09/25/17 09/25/17 09/25/17 07:00 15:00 23:00 07:00 15:00 23:00 Intake Total 1000 ml 1000 ml Balance 1000 ml 1000 ml Intake IV Total 1000 ml 1000 ml # Voids 1 1 # Bowel Movements 0 Result Diagram: 09/24/17 1130 09/24/17 1130 Imaging Neck CTA 09/25/17 0000 Signed Impressions: CONCLUSION: 1. 70% stenosis within the left proximal internal carotid artery. 2. No significant stenosis right internal carotid artery. Head Magnetic Resonance Angiography 09/25/17 0000 Signed Impressions: CONCLUSION: 1. Focal area of mild narrowing involving the right P1 segment of posterior ce rebral artery. 2. Otherwise unremarkable MRA of the brain. Brain MRI 09/25/17 0000 Signed Impressions: CONCLUSION: 1. No acute intracranial abnormality. 2. No acute infarction. 3. Partially empty sella. Head CT 09/24/171117 Signed Impressions: CONCLUSION: 1. Unremarkable CT scan of the brain. Chest X-Ray 09/24/171117 Signed Impressions: CONCLUSION: No acute cardiopulmonary findings. Lumbar Puncture Fluoroscopy 09/24/17 Signed Impressions: CONCLUSION: 1. Uncomplicated fluoroscopically guided lumbar puncture with pressures as abo ve. Carotid Artery Ultrasound 09/24/17 Signed Impressions: CONCLUSION: Right Internal Carotid Artery: No evidence of hemodynamically significant lesio n with less than 50% stenosis. Left Internal Carotid Artery: Findings of high-grade stenosis greater than 70%. CT angiography of the cervicobrachial arch and carotid arteries is recommended for further evaluation if clinically indicated. Objective Remarks GENERAL: WN, WD female resting in bed in [facility]. SKIN: Warm and dry. HEENT: AT/NC. PERRLA. MMM. NECK: Supple no tender LAD or JVD. No meningeal signs. HEART: RRR no m/r/g. LUNGS: CTAB without wheezes or crackles. ABDOMEN: +BS, soft, NT, ND. EXTREMITIES: No LE edema. 2+ pedal pulses. NEURO: Awake and alert. CN II-XII intact. 5/5 UE and LE strength. No pronator drift. No clonus. PSYCH: Appropriate mood and affect. A/P Assessment and Plan 62 YOWF with history of DM, HTN, and HLD admitted on 09/24 for headache, vomiting , and questionable syncope. 1. Loss of consciousness - DDx: TIA, syncope, seizure - EKG unremarkable - Monitor on telemetry - EEG ordered - MRI brain with partially empty sella otherwise negative - MRA showing a focal area of mild narrowing involving the right P1 segment of the MANAGER INFORMATION otherwise unremarkable - Echo ordered - Carotid U/S showing evidence of L high grade stenosis, CTA showing 70% stenosis on the L. Consult vascular surgery for further eval - Neurology consulted for further eval 2. Occipital headache - Migraine vs. possible ICH vs. CVA - CT head negative - MRI negative except for partially empty sella - S/P LP on 09/24, unremarkable CSF studies - Neurochecks - Neuro consulted - Tylenol PRN 3. Left-sided numbness/tingling/weakness - In the context of above need to rule out acute stroke - PT/OT 4. Diabetes - SSI per protocol 5. Hypertension - Resume home meds - Monitor BPs 6. Hyperlipidemia - Continue home statin 7. Depression - Continue home Remeron DVT prophylaxis: Lovenox starting this evening Discharge Planning Pending further clinical work-up and clearance from neurology Yuly Holder MD Sep 25, 2017 07:53
[2017-09-25] MEDS ORDERED: IOHEXOL 350 MG/ML 10 ML VIAL (for RAD DIAG) IVCONTRAST ONE (08:03)
--- NOTE | 2017-09-25 08:48 | RADRPT ---
EXAM DATE: 09/25/2017 8:30 AM EDT AGE/SEX: 62 years / Female INDICATIONS: Syncope and headache. CLINICAL DATA: This is the patient's initial encounter. Patient reports that signs and symptoms have been present for 1 week and indicates a pain score of 4/10. MEDICAL/SURGICAL HISTORY: Hypertension. Diabetes. Appendectomy. Hysterectomy. RADIATION DOSE: 11.02 CTDI (mGy) COMPARISON: [facility] [place] [facility] [place] CAROTID ARTERIES, 09/24/2017. . TECHNIQUE: Volumetric scanning was performed using a multirow detector CT scanner during bolus infus ion of 74 ml Omnipaque 350 (iohexol) nonionic water-soluble contrast as a single exam dose. The da ta was postprocessed with a variety of visualization algorithms including full-volume maximum intensi ty projection, multiplanar sliding thin-slab reformation, curved-planar reformation, and surface-rend ering techniques. Using automated exposure control and adjustment of the mA and/or kV according to p atient size, radiation dose was kept as low as reasonably achievable to obtain optimal diagnostic khushbu lity images. DICOM format image data is available electronically for review and comparison. FINDINGS: Aortic Arch: There is a three-vessel origin of the great vessels from the aorta. No evidence of ost ial narrowing Right Carotid: The common carotid artery is intact. The carotid bulb has a normal configuration wit hout ulceration or narrowing. The internal carotid artery lumen is smooth without stenosis. The ext ernal carotid artery is intact. Left Carotid: The common carotid artery is intact. There is concentric soft tissue plaque at the alma gin of the left internal carotid artery with 70% stenosis. The external carotid artery is intact. Vertebrals: The vertebral arteries have a symmetric diameter. No stenotic lesions are seen. Elevated flow velocities and ICA/CCA ratios have been found to correlate with increased degrees of ve ssel stenosis, calculated as percentage of diameter relative to a normal segment of distal ICA/CCA. CONCLUSION: 1. 70% stenosis within the left proximal internal carotid artery. 2. No significant stenosis right internal carotid artery. Electronically signed by: Lauri Davison MD 09/25/2017 8:47 AM EDT
[2017-09-25] MEDS ORDERED: NON-FORMULARY DRUG (Omega-3 Fatty Acids (Fish Oil 1200 mg) 1 CAP) PO SCH (09:00)
[2017-09-25] MEDS ORDERED: GARLIC PO SCH (09:00)
[2017-09-25] MEDS ORDERED: amLODIPine BESYLATE 5 MG TAB PO SCH (09:00)
--- NOTE | 2017-09-25 09:36 | RADRPT ---
EXAM DATE: 09/25/2017 9:24 AM EDT AGE/SEX: 62 years / Female INDICATIONS: Dizziness. Headaches. Syncope. CLINICAL DATA: This is the patient's initial encounter. Patient reports that signs and symptoms have been present for 2 days and indicates a pain score of 0/10. MEDICAL/SURGICAL HISTORY: Diabetes mellitus type II. Hypertension. Appendectomy. Hysterectomy . Fusion, lumbar. COMPARISON: [facility], CT BRAIN W/O CONTRAST, 09/24/2017. . TECHNIQUE: Multiplanar, multisequence examination of the brain was performed without contrast. FINDINGS: Cerebrum: The ventricles are normal for age. No evidence of midline shift, mass lesion, hemorrhage or acute infarction. No extraaxial fluid collections are seen. Partially empty sella. White Matter: No significant signal abnormalities are seen in the white matter. Posterior Fossa: The cerebellum and brainstem are intact. The 4th ventricle is midline. The cerebel lopontine angle is unremarkable. The cerebellar tonsils are normal in position. Diffusion Imaging: No focal areas of restricted diffusion are seen. No evidence of acute infarction . Extracranial: The visualized portions of the orbits and paranasal sinuses are unremarkable. CONCLUSION: 1. No acute intracranial abnormality. 2. No acute infarction. 3. Partially empty sella. Electronically signed by: Lauri Davison MD 09/25/2017 9:35 AM EDT
--- NOTE | 2017-09-25 09:41 | RADRPT ---
EXAM DATE: 09/25/2017 9:24 AM EDT AGE/SEX: 62 years / Female INDICATIONS: Dizziness. Headaches. Syncope. CLINICAL DATA: This is the patient's initial encounter. Patient reports that signs and symptoms have been present for 2 days and indicates a pain score of 0/10. MEDICAL/SURGICAL HISTORY: Diabetes mellitus type II. Hypertension. Hysterectomy. Appendectomy . Fusion, lumbar. COMPARISON: No prior exams available for comparison. TECHNIQUE: 3D [id number] MRA was performed. Source images, multiplanar STS MIP, and 3D volum e MIP reconstructions were reviewed. FINDINGS: There is excellent visualization of the major intracranial arteries out to the second-order branch ve ssels. There is no evidence for aneurysm, vessel truncation or stenosis, and no evidence for vascula r malformation. Small anterior communicating artery. Common A2 trunk of the anterior cerebral artery, normal variant. There is focal mild narrowing of the right P1 segment of the posterior cerebral lukas ry. Middle cerebral arteries are normal. Vertebrobasilar junction normal. Basilar artery unremarkable . CONCLUSION: 1. Focal area of mild narrowing involving the right P1 segment of posterior cerebral artery. 2. Otherwise unremarkable MRA of the brain. Electronically signed by: Lauri Davison MD 09/25/2017 9:39 AM EDT
[2017-09-25] MEDS ORDERED: INFLUENZA VIRUS VACCINE (QUADRIVALENT) 0.5 ML SYR IM ONE (10:00)
[2017-09-25] MEDS: ACETAMINOPHEN 325 MG TAB PO PRN (10:17)
[2017-09-25] MEDS ORDERED: ENOXAPARIN SODIUM 40 MG/0.4 ML SYRINGE SQ SCH (12:00)
--- NOTE | 2017-09-25 15:14 | EKG ---
Date Performed: 09/24/2017 Time Performed: 11:29:44 PTAGE: 62 years EKG: Sinus rhythm POSSIBLE LEFT ATRIAL ENLARGEMENT POSSIBLE INFERIOR MYOCARDIAL INFARCTION BORDERLINE ECG NO PREVIOUS TRACING DOCTOR: Paul Cevallos Interpretating Date/Time 09/25/2017 15:09:56
--- NOTE | 2017-09-25 16:17 | PD.VS.CON ---
History of Present Illness Chief Complaint: headache, LOC Consult Requested by: ED History of Present Illness 62 yo female with 1-2 d of B occipital headache and initial ?LOC. No focal neuro symptoms and no personal history of Amaurosis, TIA or CVA. [place] similar to this a year ago when she was told she was "dehydrated" Past/Family/Social History Past Medical History DM HTN XOL GERD Past Surgical History sinus surgery B CTR neck/back surgery podiatric surgery bladder surgery x 4 Social History NC Family History NC Home Medications Reported Medications [place]-3 Fatty Acids (Fish Oil 1200 mg) 360 Mg-1,200 Mg Cap, 1 CAP PO DAILY 12/15/16 Garlic (Garlic Oil 1000) 1,000 Mg Cap, 1000 TAB PO DAILY 12/10/16 Amlodipine (Norvasc) 5 Mg Tab, 5 MG PO DAILY for Blood Pressure Management, #30 TAB 0 Refills 12/10/16 Atorvastatin (Atorvastatin) 80 Mg Tab, 80 MG PO HS for Cholesterol Management, # 30 TAB 0 Refills 12/10/16 Losartan-Hydrochlorothiazide (Losartan-Hydrochlorothiazide) 100-25 Mg Tab, 1 TAB PO DAILY for Blood Pressure Management, #30 TAB 0 Refills 12/10/16 Mirtazapine (Mirtazapine) 15 Mg Tab, 15 MG PO HS for Depression Control, #30 TAB 0 Refills 12/10/16 Metformin (Metformin) 500 Mg Tab, 500 MG PO BIDPC for Blood Sugar Management, # 60 TAB 0 Refills With meals 12/10/16 Pantoprazole (Protonix) 40 Mg Tab, 40 MG PO DAILY for Reflux, #30 TAB 0 Refills 12/10/16 Cholecalciferol (Vitamin D3) 5,000 Unit Cap, 5000 UNITS PO DAILY for Nutritional Supplement, #30 CAP 0 Refills 12/10/16 Discontinued Reported Medications Zolpidem (Zolpidem) 5 Mg Tab, 5 MG PO HS Y for INSOMNIA, TAB 0 Refills 12/10/16 Coded Allergies: No Known Allergies (Verified Allergy, Unknown, 09/24/17) Review of Systems Constitutional: COMPLAINS OF: Dizziness, DENIES: Fever, Chills Eyes: DENIES: Vision loss Neurologic: COMPLAINS OF: Headache, DENIES: Localized weakness, Speech Problems Physical Exam Vitals/I&O Date Time Temp Pulse Resp B/P (MAP) Pulse Ox O2 Delivery O2 Flow Rate FiO2 6/23/18 15:15 98.5 87 18 181/91 (121) 98 09/25/17 13:17 71 09/25/17 11:06 98.0 88 18 176/88 (117) 96 09/25/17 08:00 71 09/25/17 07:27 98.2 72 18 185/91 (122) 95 09/25/17 03:28 98.0 82 16 171/83 (112) 98 09/24/17 23:41 98.1 76 16 155/80 (105) 95 09/24/17 23:00 52 09/24/17 19:56 98.0 75 17 175/79 (111) 94 09/24/17 17:37 68 Neuro: alert and appears to be in no distress HEENT: NC/AT Neck: no JVD Heart: reg rate, no M Lungs: clear B Vascular: palp pulses Extremities: MCLEOD 5/5 strength Date/Time Source Procedure Growth Status 09/24/17 15:50 Cerebral Spinal Fluid Lumbar Puncture Gram Stain - Final Resulted 09/24/17 15:50 Cerebral Spinal Fluid Lumbar Puncture CSF Culture - Preliminary NO GROWTH IN 24 HOURS. Resulted Last 48 hours Impressions Neck CTA 09/25/17 Signed Impressions: CONCLUSION: 1. 70% stenosis within the left proximal internal carotid artery. 2. No significant stenosis right internal carotid artery. Head Magnetic Resonance Angiography 09/25/17 Signed Impressions: CONCLUSION: 1. Focal area of mild narrowing involving the right P1 segment of posterior ce rebral artery. 2. Otherwise unremarkable MRA of the brain. Brain MRI 09/25/17 Signed Impressions: CONCLUSION: 1. No acute intracranial abnormality. 2. No acute infarction. 3. Partially empty sella. Head CT 09/24/171117 Signed Impressions: CONCLUSION: 1. Unremarkable CT scan of the brain. Chest X-Ray 09/24/171117 Signed Impressions: CONCLUSION: No acute cardiopulmonary findings. Lumbar Puncture Fluoroscopy 09/24/17 Signed Impressions: CONCLUSION: 1. Uncomplicated fluoroscopically guided lumbar puncture with pressures as abo ve. Carotid Artery Ultrasound 09/24/17 Signed Impressions: CONCLUSION: Right Internal Carotid Artery: No evidence of hemodynamically significant lesio n with less than 50% stenosis. Left Internal Carotid Artery: Findings of high-grade stenosis greater than 70%. CT angiography of the cervicobrachial arch and carotid arteries is recommended for further evaluation if clinically indicated. Assessment and Plan Plan 62 yo with asymptomatic 70-80% focal L ICA stenosis. Can be safely followed up as outpatient and I'll arrange. Not cause of headaches. Needs ASA, statin. Arthur Christensen MD FACS [employer] merchandising team lead [facility] - Heart and Vascular Surgery at [facility] [phone] Arthur Christensen MD Sep 25, 2017 16:17
[2017-09-25] MEDS: cloNIDine HCL 0.1 MG TAB PO PRN (17:52)
[2017-09-25] MEDS: ENOXAPARIN SODIUM 40 MG/0.4 ML SYRINGE SQ SCH (17:52)
[2017-09-25] MEDS: MIRTAZAPINE 15 MG TAB PO SCH (22:04)
[2017-09-25] MEDS: ATORVASTATIN 80 MG TAB PO SCH (22:04)
[2017-09-26] VITALS (9 sets, daily range): BP systolic 134–169; BP diastolic 72–82; PULSE 60–84; RESP 16–18; TEMP 97.8–98.6; O2SAT 84–98
[2017-09-26] MEDS ORDERED: LORazepam 2 MG/ML VIAL IV PUSH ONE (06:00)
--- NOTE | 2017-09-26 07:55 | HHI.PR ---
Subjective Remarks Pt seen and examined in follow-up for occipital headache and LOC. She reports her headache seems to be traveling down more into her neck but is not as severe. She describes it as a dull constant ache that is 2/10. She denies any other symptoms. No dizziness, visual changes, slurred speech, chest pain, SOB, abdominal pain, N/V. Denies paresthesias. Objective Vital Signs Date Time Temp Pulse Resp B/P (MAP) Pulse Ox O2 Delivery O2 Flow Rate FiO2 09/26/17 07:27 98.1 69 16 163/82 (109) 95 09/26/17 04:33 97.8 60 18 162/74 (103) 98 09/26/17 00:04 98.0 64 18 134/75 (94) 93 09/25/17 21:02 98.2 77 18 143/83 (103) 95 09/25/17 16:18 79 09/25/17 15:15 98.5 87 18 181/91 (121) 98 09/25/17 13:17 71 09/25/17 11:06 98.0 88 18 176/88 (117) 96 09/25/17 08:00 71 I/O 09/25/17 09/25/17 09/25/17 09/26/17 09/26/17 09/26/17 07:00 15:00 23:00 07:00 15:00 23:00 Intake Total 300 ml Balance 300 ml Intake Oral 300 ml # Voids 3 # Bowel Movements 1 Result Diagram: 09/24/17 1130 09/24/17 1130 Imaging Neck CTA 09/25/17 0000 Signed Impressions: CONCLUSION: 1. 70% stenosis within the left proximal internal carotid artery. 2. No significant stenosis right internal carotid artery. Head Magnetic Resonance Angiography 09/25/17 0000 Signed Impressions: CONCLUSION: 1. Focal area of mild narrowing involving the right P1 segment of posterior ce rebral artery. 2. Otherwise unremarkable MRA of the brain. Brain MRI 09/25/17 0000 Signed Impressions: CONCLUSION: 1. No acute intracranial abnormality. 2. No acute infarction. 3. Partially empty sella. Head CT 09/24/17 1118 Signed Impressions: CONCLUSION: 1. Unremarkable CT scan of the brain. Chest X-Ray 09/24/17 1118 Signed Impressions: CONCLUSION: No acute cardiopulmonary findings. Lumbar Puncture Fluoroscopy 09/24/17 0000 Signed Impressions: CONCLUSION: 1. Uncomplicated fluoroscopically guided lumbar puncture with pressures as abo ve. Carotid Artery Ultrasound 09/24/17 0000 Signed Impressions: CONCLUSION: Right Internal Carotid Artery: No evidence of hemodynamically significant lesio n with less than 50% stenosis. Left Internal Carotid Artery: Findings of high-grade stenosis greater than 70%. CT angiography of the cervicobrachial arch and carotid arteries is recommended for further evaluation if clinically indicated. Objective Remarks GENERAL: WN, WD female resting in bed in NAD. SKIN: Warm and dry. HEENT: AT/NC. PERRLA. MMM. NECK: Supple no tender LAD or JVD. No meningeal signs. HEART: RRR no m/r/g. LUNGS: CTAB without wheezes or crackles. ABDOMEN: +BS, soft, NT, ND. EXTREMITIES: No LE edema. 2+ pedal pulses. NEURO: Awake and alert. 5/5 UE and LE strength. PSYCH: Appropriate mood and affect. A/P Assessment and Plan 62 YOWF with history of DM, HTN, and HLD admitted on 09/24 for headache, vomiting , and questionable syncope. 1. Loss of consciousness - DDx: TIA, syncope, seizure, dehydration - EKG unremarkable - EEG ordered - MRI brain with partially empty sella otherwise negative - MRA showing a focal area of mild narrowing involving the right P1 segment of the [employer] otherwise unremarkable - Carotid U/S showing evidence of L high grade stenosis, CTA showing 70% stenosis on the L. Vascular surgery consulted and do not feel this is the cause of her symptoms and therefore her carotid stenosis can be followed as an outpatient - Echo ordered has not been done yet - Neurology consulted for further eval, MRI C-spine ordered showing small central/right paracentral protrusion at C5-C6 causing some cord flattening and mild neural foraminal narrowing on the right at C5-C6 - Will await further neuro reccs - Monitor on telemetry 2. Occipital headache - Migraine vs. possible ICH vs. CVA - CT head negative - MRI negative except for partially empty sella - S/P LP on 09/24, unremarkable CSF studies - Neurochecks - Neuro consulted - Tylenol PRN 3. Diabetes - SSI per protocol 4. Hypertension - BPs have been elevated - Increase Amlodipine to 10 mg daily - Continue home Losartan - Continue to monitor 5. Hyperlipidemia - Continue home statin 6. Depression - Continue home Remeron DVT prophylaxis: Lovenox Discharge Planning Echo still needs to be done and awaiting neurology recommendations; anticipate d /c today or tomorrow if both complete Yluy Holder MD Sep 26, 2017 07:55
--- NOTE | 2017-09-26 08:02 | MG ---
cc: Julius Glynn MD, PhD TEST NUMBER: [id number] TECHNIQUE: A 17-channel EEG. DESCRIPTION: The background rhythm reveals a symmetrical alpha rhythm, frequency of 8-9 Hz. Amplitude is about 20 microvolts. During drowsiness, there is slowing in the theta range. There are some sleep spindles present, consistent with normal sleep activity. Some vertex sharp waves are seen, consistent with normal sleep activity. There are no epileptiform discharges. No lateralizing features are seen. Hyperventilation does not alter the background rhythm. Photic results in a normal driving response. INTERPRETATION: Normal electroencephalogram. Julius Glynn MD, PhD EPIFANIO/JUANITO , 09:18 PM , 07:59 AM
--- NOTE | 2017-09-26 08:30 | MB ---
cc: Julius Glynn MD, PhD DATE: 09/25/2017 REASON FOR CONSULTATION: Syncope, rule out seizure. HISTORY OF PRESENT ILLNESS: Ms. Bentley is a 62-year-old female who for the past week has had severe headache starting in the occipital region and cervical spine area, going to the top of her head. Yesterday, she had an episode where her arms became painful, started radiating up to the neck and her arms began drawing up. She lost consciousness for a short period of time with no postictal state, no known tonic-clonic activity. She states she did not bite her tongue, did not have any urinary incontinence. No prior history of seizure. She states the headaches began in the cervical spine area. PAST MEDICAL AND SURGICAL HISTORY: Diabetes, hypertension, hypercholesterolemia, acid reflux, lumbar surgery, appendectomy, , bladder surgeries. ALLERGIES: NONE KNOWN. MEDICATIONS: 1. Aspirin 81 mg daily. 2. Remeron 15 mg daily. 3. Lovenox 40 mg subcutaneous daily. 4. Protonix 40 mg daily. 5. Norvasc 5 mg daily. 6. Cozaar 50 mg daily. 7. Tylenol p.r.n. NEUROLOGIC EXAMINATION: VITAL SIGNS: Blood pressure 181/91, pulse 87, respiratory rate is 18, temperature 98 degrees. HIGHER CORTICAL FUNCTION: Normal. CRANIAL NERVES: 2-12 are normal in detail. 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 There is no drift. Reflexes are symmetric. IMAGING STUDIES: MRI brain is normal. MRA brain: Mild narrowing of the right P1 segment, otherwise normal. No aneurysm is seen. CTA neck: 70% stenosis of the left internal carotid artery. Carotid ultrasound: Greater than 70% left carotid stenosis. CT brain is normal. LABORATORY DATA: White count 10,200; hemoglobin 16.1; hematocrit 48%; platelet count 404,000. Sodium is 142, potassium 3.5, chloride 108, CO2 is 17, BUN is 9, creatinine 1.06, AST 36, ALT 53. His PT 10.1, INR 1, aPTT 23.6. IMPRESSION : 1. Headaches, probably cervicogenic and due to cervical spondylosis. Of note, the arm pain may have been cervical radiculopathy. 2. Syncope, possible vasovagal reaction from the severe pain. Doubt seizure. RECOMMENDATION: I would like to get an MRI of the cervical spine to rule out cervical spondylosis. Also, an echocardiogram. She does have carotid artery stenosis on CT angiogram on the left side. However, I do not feel this is symptomatic, but we will consult vascular surgery for evaluation. Julius Glynn MD, PhD EPIFANIO/JUANITO , 08:55 PM , 08:28 AM
--- NOTE | 2017-09-26 08:41 | RADRPT ---
EXAM DATE: 09/26/2017 8:38 AM EDT AGE/SEX: 62 years / Female INDICATIONS: . Cephalgia, dizziness. CLINICAL DATA: This is the patient's initial encounter. Patient reports that signs and symptoms have been present for 2 days and indicates a pain score of 3/10. MEDICAL/SURGICAL HISTORY: Hypertension. Diabetes mellitus type II. Hysterectomy. COMPARISON: No prior exams available for comparison. TECHNIQUE: Multiplanar, multisequence MRI examination of the cervical spine was performed without co ntrast. FINDINGS: Vertebrae: No compression fracture. Vertebral body heights are preserved. Disc spaces are preserved. Diffuse disc desiccation. Alignment: Normal. Cord: Normal configuration and signal. Post Fossa: The cerebellar tonsils are normal in position. C2-C3: The thecal sac has a normal configuration. There is no evidence of disc herniation or spinal canal stenosis. The neural foramina are patent bilaterally. C3-C4: The thecal sac has a normal configuration. There is no evidence of disc herniation or spinal canal stenosis. The neural foramina are patent bilaterally. C4-C5: The thecal sac has a normal configuration. There is no evidence of disc herniation or spinal canal stenosis. The neural foramina are patent bilaterally. C5-C6: Small central/right paracentral protrusion abuts the ventral thecal sac and ventral cord. Sli ght flattening of the anterior cord. No canal stenosis. Mild neural foraminal narrowing on the right. Left neural foramen is patent. C6-C7: The thecal sac has a normal configuration. There is no evidence of disc herniation or spinal canal stenosis. The neural foramina are patent bilaterally. C7-T1: No epidural impressions seen. CONCLUSION: 1. Small central/right paracentral protrusion at C5-C6 abuts the ventral cord and causes cord flatte solomon. Mild neural foraminal narrowing on the right at C5-6. 2. The remainder of the cervical spinal cord is otherwise unremarkable Electronically signed by: Lauri Davison MD 09/26/2017 8:40 AM EDT
[2017-09-26] MEDS: LOSARTAN 50 MG TAB PO SCH (09:09)
[2017-09-26] MEDS: PANTOPRAZOLE SOD 40 MG DELAYED RELEASE TAB PO SCH (09:10)
[2017-09-26] MEDS: ASPIRIN EC 81 MG TABEC PO SCH (09:10)
[2017-09-26 12:18] LABS: ALBUMIN 3.7 GM/DL (3.4-5.0); ALKALINE PHOSPHATASE 62 U/L (45-117); ALT (GPT) 65 U/L (10-53); AST (GOT) 57 U/L (15-37); BICARBONATE 26.6 MEQ/L (21.0-32.0); BLOOD UREA NITROGEN 14 MG/DL (7-18); CALCIUM 9.1 MG/DL (8.5-10.1); CHLORIDE 107 MEQ/L (98-107); CREATININE 0.78 MG/DL (0.50-1.00); GLOMERULAR FILTRATION RATE 75 ML/MIN (>89); GLUCOSE,RANDOM 150 MG/DL (74-106); SODIUM (NA) 143 MEQ/L (136-145); TOTAL BILIRUBIN ADULT 0.6 MG/DL (0.2-1.0); TOTAL PROTEIN 6.9 GM/DL (6.4-8.2)
[2017-09-26] MEDS: ENOXAPARIN SODIUM 40 MG/0.4 ML SYRINGE SQ SCH (17:38)
[2017-09-26] MEDS: MIRTAZAPINE 15 MG TAB PO SCH (20:57)
[2017-09-26] MEDS: ATORVASTATIN 80 MG TAB PO SCH (20:57)
[2017-09-27] VITALS (8 sets, daily range): BP systolic 130–166; BP diastolic 65–89; PULSE 57–81; RESP 15–18; TEMP 97.3–99.1; O2SAT 94–97
--- NOTE | 2017-09-27 08:55 | ECHRPT ---
Indication: CVA/TIA CONCLUSIONS Mild concentric left ventricular hypertrophy. Normal left ventricular size. The left ventricular systolic function is hyperdynamic with an estimated ejection fraction in the ra nge of 65- 70%. No tricuspid regurgitation. BP: / HR: Rhythm: Sinus MEASUREMENTS (Male / Female) Normal Values Technical Quality:Fair 2D ECHO LV Diastolic Diameter PLAX 4.0 cm 4.2 - 5.9 / 3.9 - 5.3 cm LV Systolic Diameter PLAX 2.7 cm IVS Diastolic Thickness 1.2 cm 0.6 - 1.0 / 0.6 - 0.9 cm LVPW Diastolic Thickness 1.2 cm 0.6 - 1.0 / 0.6 - 0.9 cm LV Relative Wall Thickness 0.6 RV Internal Dim ED PLAX 2.0 cm LVOT Diameter 1.8 cm Aortic Root Diameter 3.0 cm LA Systolic Diameter LX 2.7 cm 3.0 - 4.0 / 2.7 - 3.8 cm M-MODE AV Cusp Separation MM 1.6 cm DOPPLER AV Peak Velocity 120.0 cm/s AV Peak Gradient 5.8 mmHg AV Mean Gradient 3.0 mmHg AV Velocity Time Integral 22.5 cm LVOT Peak Velocity 91.7 cm/s LVOT Peak Gradient 3.4 mmHg LVOT Velocity Time Integral 14.1 cm AV Area Cont Eq vti 1.6 cm AV Area Cont Eq pk 1.9 cm Mitral E Point Velocity 68.1 cm/s Mitral A Point Velocity 106.0 cm/s Mitral E to A Ratio 0.6 LV E' Lateral Velocity 5.7 cm/s Mitral E to LV E' Lateral Ratio 12.1 LV E' Septal Velocity 3.4 cm/s Mitral E to LV E' Septal Ratio 20.0 PV Peak Velocity 61.7 cm/s PV Peak Gradient 1.5 mmHg FINDINGS LEFT VENTRICLE Mild concentric left ventricular hypertrophy. Normal left ventricular size. The left ventricular systolic function is hyperdynamic with an estimated ejection fraction in the ra nge of 65- 70%. Doppler parameters are consistent with impaired left ventricular relaxtion (grade 1 diastolic dysfun ction). RIGHT VENTRICLE Normal right ventricular size and systolic function. LEFT ATRIUM The left atrial size is normal. RIGHT ATRIUM The right atrial size is normal. ATRIAL SEPTUM The interatrial septum not well visualized. AORTA The aortic root and proximal ascending aorta are not well visualized. MITRAL VALVE Structurally normal mitral valve. No mitral valve stenosis or regurgitation. AORTIC VALVE No aortic valve stenosis or regurgitation. TRICUSPID VALVE No tricuspid regurgitation. PULMONARY VALVE The pulmonary valve is not well visualized. VESSELS The inferior vena cava was not well visualized. PERICARDIUM No pericardial effusion. Adán Gamez MD (Electronically Signed) Final Date:27 September 2017 08:54
[2017-09-27] MEDS: ASPIRIN EC 81 MG TABEC PO SCH (09:35)
[2017-09-27] MEDS: PANTOPRAZOLE SOD 40 MG DELAYED RELEASE TAB PO SCH (09:35)
[2017-09-27] MEDS: LOSARTAN 50 MG TAB PO SCH (09:36)
[2017-09-27] MEDS ORDERED: POTASSIUM CHLORIDE 20 MEQ CONTROLLED RELEASE TAB PO ONE (09:45)
--- NOTE | 2017-09-27 09:45 | HHI.PR ---
Subjective Remarks Pt seen and examined in follow-up for occipital headache and LOC. She continues to have a low occipital headache and into her neck. She states it has been constant for nearly a week now. She is scared to go home because she has dogs and she doesn't think she can tolerate their barking with her headache. Pain is 3-4/10. She describes it as a dull constant ache with associated nausea. No dizziness, visual changes, slurred speech, chest pain, SOB, paresthesias. She reports in the past she was taken off of her statin due to elevation in liver enzymes. Since it was still on her med list it was continued this hospitalization but upon checking her LFTs yesterday they had gone up. She reports she is being followed by GI as an outpatient to monitor her LFTs and has an appointment coming up to check them. Objective Vital Signs Date Time Temp Pulse Resp B/P (MAP) Pulse Ox O2 Delivery O2 Flow Rate FiO2 09/27/17 07:59 97.3 70 18 130/83 (99) 96 09/27/17 05:14 98.1 70 15 166/78 (107) 97 09/27/17 00:06 98.1 65 17 150/65 (93) 94 09/26/17 20:51 97.9 84 18 134/81 (98) 84 09/26/17 19:37 73 09/26/17 16:41 98.6 78 18 169/81 (110) 94 09/26/17 15:55 77 09/26/17 11:45 98.0 74 16 147/72 (97) 96 09/26/17 09:58 77 I/O 09/26/17 09/26/17 09/26/17 09/27/17 09/27/17 09/27/17 07:00 15:00 23:00 07:00 15:00 23:00 # Voids 3 # Bowel Movements 1 Result Diagram: 09/24/17 1130 09/26/17 1040 Imaging Cervical Spine MRI 09/26/17 0000 Signed Impressions: CONCLUSION: 1. Small central/right paracentral protrusion at C5-C6 abuts the ventral cord and causes cord flattening. Mild neural foraminal narrowing on the right at C5- 6. 2. The remainder of the cervical spinal cord is otherwise unremarkable Neck CTA 09/25/17 0000 Signed Impressions: CONCLUSION: 1. 70% stenosis within the left proximal internal carotid artery. 2. No significant stenosis right internal carotid artery. Head Magnetic Resonance Angiography 09/25/17 Signed Impressions: CONCLUSION: 1. Focal area of mild narrowing involving the right P1 segment of posterior ce rebral artery. 2. Otherwise unremarkable MRA of the brain. Brain MRI 09/25/17 Signed Impressions: CONCLUSION: 1. No acute intracranial abnormality. 2. No acute infarction. 3. Partially empty sella. Head CT 09/24/171117 Signed Impressions: CONCLUSION: 1. Unremarkable CT scan of the brain. Chest X-Ray 09/24/171117 Signed Impressions: CONCLUSION: No acute cardiopulmonary findings. Lumbar Puncture Fluoroscopy 09/24/17 Signed Impressions: CONCLUSION: 1. Uncomplicated fluoroscopically guided lumbar puncture with pressures as abo ve. Carotid Artery Ultrasound 09/24/17 Signed Impressions: CONCLUSION: Right Internal Carotid Artery: No evidence of hemodynamically significant lesio n with less than 50% stenosis. Left Internal Carotid Artery: Findings of high-grade stenosis greater than 70%. CT angiography of the cervicobrachial arch and carotid arteries is recommended for further evaluation if clinically indicated. Objective Remarks GENERAL: WN, WD female resting in bed in [facility]. SKIN: Warm and dry. HEENT: AT/NC. PERRLA. MMM. NECK: Supple no tender LAD or JVD. No meningeal signs. HEART: RRR no m/r/g. LUNGS: CTAB without wheezes or crackles. ABDOMEN: +BS, soft, NT, ND. EXTREMITIES: No LE edema. 2+ pedal pulses. NEURO: Awake and alert. 5/5 UE and LE strength. PSYCH: Appropriate mood and affect. A/P Assessment and Plan 62 YOWF with history of DM, HTN, and HLD admitted on 09/24 for headache, vomiting , and questionable syncope. 1. 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 Vascular surgery consulted and do not feel this is the cause of her symptoms and therefore her carotid stenosis can be followed as an outpatient - Echo showing mild concentric LVH, normal LV size, and EG 65-70% - Neurology consulted for further eval, MRI C-spine ordered showing small central/right paracentral protrusion at C5-C6 causing some cord flattening and mild neural foraminal narrowing on the right at C5-C6; will await further recommendations - Monitor on telemetry 2. Occipital headache - Migraine vs. possible ICH vs. CVA - CT head negative - MRI negative except for partially empty sella - S/P LP on 09/24, unremarkable CSF studies - Neurochecks - Neuro consulted - Tylenol PRN 3. Diabetes - SSI per protocol 4. Hypertension - BPs improved after increasing Amlodipine to 10 mg daily - Continue home Losartan - Continue to monitor 5. Hyperlipidemia - D/C statin as LFTs increased - F/U LFTs as outpatient 6. Depression - Continue home Remeron 7. Hypokalemia - Potassium 3.0 - Replete with 40 meq KCl PO - Recheck BMP DVT prophylaxis: Lovenox Discharge Planning Possibly today or tomorrow if cleared by neurology Yuly Holder MD Sep 27, 2017 09:45
[2017-09-27 13:19] LABS: BICARBONATE 23.4 MEQ/L (21.0-32.0); CALCIUM 9.2 MG/DL (8.5-10.1); CREATININE 0.8 MG/DL (0.50-1.00)
[2017-09-27] MEDS: ACETAMINOPHEN 325 MG TAB PO PRN (16:51)
--- NOTE | 2017-09-27 18:06 | HHI.PR ---
Review/Management Diagnosis cervical spondylosis with occipital neuralgia headaches She states had an episode of LE wekness and numbness--- asymptomatic carotid stenosis. Dr Hoffmann note appreciated Plan check cervical spine Xray with flexion and extension b/o sx of intermitent numbness and BLE weakness and neurosurgery evaluation PT for cervical spondylosis and start topamax for the occipital neuralgia headaches. If no inprovement in several weaks, consult pain management for occipital nerve block agree with statin and asa for asymptomatic carotid stenosis Diagnosis/Plan: Subjective Subjective Comments No acute events reported still has headache--starts in occipital area and radiates to top of head Active Medications Current Medications Medications (Trade) Dose Ordered Sig/Dilip Route Start Time Stop Time Status Last Admin (Protonix) 40 mg DAILY PO 09/25/17 09:00 09/27/17 09:35 (Cozaar) 50 mg DAILY PO 09/25/17 09:00 09/27/17 09:36 (Catapres) 0.1 mg Q6H PRN PO 09/25/17 07:45 09/25/17 17:52 (Tylenol) 650 mg Q4H PRN PO 09/25/17 08:00 09/27/17 16:51 (Remeron) 15 mg HS PO 09/25/17 21:00 09/26/17 20:57 (Lovenox Inj) 40 mg Q24H SQ 09/25/17 18:00 09/26/17 17:38 (Ecotrin Ec) 81 mg DAILY PO 09/26/17 09:00 09/27/17 09:35 (Norvasc) 10 mg DAILY PO 09/26/17 09:00 09/27/17 09:35 Allergies Allergies Coded Allergies No Known Allergies (Verified Allergy, Unknown, 09/24/17) Exam I&O / VS Vital Signs Date Time Temp Pulse Resp B/P (MAP) Pulse Ox O2 Delivery O2 Flow Rate FiO2 09/27/17 16:00 99.1 78 17 148/70 (96) 95 09/27/17 12:00 97.8 81 17 148/76 (100) 96 09/27/17 07:59 97.3 70 18 130/83 (99) 96 09/27/17 07:19 57 09/27/17 05:14 98.1 70 15 166/78 (107) 97 09/27/17 00:06 98.1 65 17 150/65 (93) 94 09/26/17 20:51 97.9 84 18 134/81 (98) 84 09/26/17 19:37 73 Exam Comments alert, speech normal CN intact MOTOR--5/5 BUE and BLE Objective Radiology Results MRI brain normal MRA brain--ENERGY RISK MANAGEMENT ANALYST stenosis. No avm or aneurysm MRI cervical spine disc protrusion C56 abutting cord. Micro and Labs Laboratory Tests Test 09/27/17 12:35 Blood Urea Nitrogen 15 Creatinine 0.80 Random Glucose 84 Calcium Level 9.2 Sodium Level 143 Potassium Level 3.5 Chloride Level 109 Carbon Dioxide Level 23.4 Anion Gap 11 Estimat Glomerular Filtration Rate 72 Date/Time Source Procedure Growth Status 09/24/17 15:50 Cerebral Spinal Fluid Lumbar Puncture Gram Stain - Final Complete 09/24/17 15:50 Cerebral Spinal Fluid Lumbar Puncture CSF Culture - Final NO GROWTH IN 72 HOURS Complete Julius Glynn MD PhD Sep 27, 2017 18:06
[2017-09-27] MEDS: ENOXAPARIN SODIUM 40 MG/0.4 ML SYRINGE SQ SCH (18:27)
--- NOTE | 2017-09-27 20:54 | RADRPT ---
EXAM DATE: 09/27/2017 8:04 PM EDT AGE/SEX: 62 years / Female INDICATIONS: Neck pain. CLINICAL DATA: This is the patient's initial encounter. Patient reports that signs and symptoms have been present for 3 days and indicates a pain score of 6/10. MEDICAL/SURGICAL HISTORY: . Hypertension. Diabetes mellitus type II. Hysterectomy. COMPARISON: No prior exams available for comparison. FINDINGS: 3 lateral views of the cervical spine including flexion and extension views demonstrate no anterolist hesis or retrolisthesis through the C7 level. C7-T1 junction is not visualized. There is no preverteb ral soft tissue swelling. Disc heights are preserved. Flexion-extension views demonstrate no abnormal motion or listhesis. CONCLUSION: No acute cervical spine abnormality is identified to the C7 level on these lateral projections. Electronically signed by: Landry Magallon MD 09/27/2017 8:53 PM EDT
[2017-09-27] MEDS: MIRTAZAPINE 15 MG TAB PO SCH (20:57)
[2017-09-27] MEDS: TOPIRAMATE 25 MG TAB PO SCH (20:57)
[2017-09-28] VITALS (7 sets, daily range): BP systolic 152–196; BP diastolic 80–103; PULSE 65–89; RESP 12–24; TEMP 97.6–98.3; O2SAT 94–98
[2017-09-28] MEDS: ACETAMINOPHEN 325 MG TAB PO PRN (01:58)
[2017-09-28] MEDS: LOSARTAN 50 MG TAB PO SCH (08:39)
[2017-09-28] MEDS: ASPIRIN EC 81 MG TABEC PO SCH (08:39)
[2017-09-28] MEDS: PANTOPRAZOLE SOD 40 MG DELAYED RELEASE TAB PO SCH (08:39)
[2017-09-28] MEDS: TOPIRAMATE 25 MG TAB PO SCH (08:39)
--- NOTE | 2017-09-28 09:16 | HHI.PR ---
Subjective Remarks She still with headaches. Says topiramate help a little bit. No motor deficits. Denies chest pain or shortness of breath. No lightheadedness. Objective Vitals Vital Signs Date Time Temp Pulse Resp B/P (MAP) Pulse Ox O2 Delivery O2 Flow Rate FiO2 09/28/17 08:24 98.0 77 24 196/99 (131) 97 09/28/17 04:50 98.3 65 16 173/99 (123) 96 09/28/17 01:44 97.6 67 16 178/85 (116) 96 09/28/17 01:15 76 09/27/17 21:21 69 09/27/17 21:05 98.1 70 16 162/89 (113) 96 Manual Cuff/Auscultation 09/27/17 16:00 99.1 78 17 148/70 (96) 95 09/27/17 12:00 97.8 81 17 148/76 (100) 96 Result Diagram: 09/24/17 1130 09/27/17 1235 Imaging Last Impressions Cervical Spine X-Ray 09/27/17 0000 Signed Impressions: CONCLUSION: No acute cervical spine abnormality is identified to the C7 level on these late ral projections. Cervical Spine MRI 09/26/17 0000 Signed Impressions: CONCLUSION: 1. Small central/right paracentral protrusion at C5-C6 abuts the ventral cord and causes cord flattening. Mild neural foraminal narrowing on the right at C5- 6. 2. The remainder of the cervical spinal cord is otherwise unremarkable Neck CTA 09/25/17 0000 Signed Impressions: CONCLUSION: 1. 70% stenosis within the left proximal internal carotid artery. 2. No significant stenosis right internal carotid artery. Head Magnetic Resonance Angiography 09/25/17 0000 Signed Impressions: CONCLUSION: 1. Focal area of mild narrowing involving the right P1 segment of posterior ce rebral artery. 2. Otherwise unremarkable MRA of the brain. Brain MRI 09/25/17 0000 Signed Impressions: CONCLUSION: 1. No acute intracranial abnormality. 2. No acute infarction. 3. Partially empty sella. Head CT 09/24/17 1118 Signed Impressions: CONCLUSION: 1. Unremarkable CT scan of the brain. Chest X-Ray 09/24/17 1118 Signed Impressions: CONCLUSION: No acute cardiopulmonary findings. Lumbar Puncture Fluoroscopy 09/24/17 0000 Signed Impressions: CONCLUSION: 1. Uncomplicated fluoroscopically guided lumbar puncture with pressures as abo ve. Carotid Artery Ultrasound 09/24/17 0000 Signed Impressions: CONCLUSION: Right Internal Carotid Artery: No evidence of hemodynamically significant lesio n with less than 50% stenosis. Left Internal Carotid Artery: Findings of high-grade stenosis greater than 70%. CT angiography of the cervicobrachial arch and carotid arteries is recommended for further evaluation if clinically indicated. Objective Remarks GENERAL: WN, WD female resting in bed in [place]. LUNGS: CTAB without wheezes or crackles. ABDOMEN: +BS, soft, NT, ND. EXTREMITIES: No LE edema. 2+ pedal pulses. NEURO: Awake and alert. 5/5 UE and LE strength. PSYCH: Appropriate mood and affect. A/P Assessment and Plan 62 YOWF with history of DM, HTN, and HLD admitted on 09/24 for headache, vomiting , and questionable syncope. 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 Vascular surgery consulted and do not feel this is the cause of her symptoms and therefore her carotid stenosis can be followed as an outpatient. - Echo showing mild concentric LVH, normal LV size, and EG 65-70% - Neurology consulted for further eval, MRI C-spine ordered showing small central/right paracentral protrusion at C5-C6 causing some cord flattening and mild neural foraminal narrowing on the right at C5-C6; will await further recommendations - Monitor on telemetry Occipital headache - Migraine vs. possible ICH vs. CVA - CT head negative - MRI negative except for partially empty sella - Plan for cervical spine Xray with flexion and extension b/o sx of intermittent numbness and BLE weakness and neurosurgery evaluation PT for cervical spondylosis and start topamax for the occipital neuralgia headaches. If no improvement in several weeks, consult pain management for occipital nerve block - Started topiramate - If no imprpvement might consider pain management follow up - S/P LP on 09/24, unremarkable CSF studies - Neurochecks - Neuro consulted and ff Neurosurgeon consulted for cervical spondylosis - Tylenol PRN Diabetes mellitus type 2 - SSI per protocol Hypertension - BPs improved after increasing Amlodipine to 10 mg daily - Continue home Losartan - Continue to monitor Hyperlipidemia - D/C statin as LFTs increased - F/U LFTs as outpatient Depression - Continue home Remeron Hypokalemia - Potassium 3.0 - Replete with 40 meq KCl PO - Recheck BMP DVT prophylaxis: Lovenox Discharge Planning When cleared by neuro and neurosurgery Denisse Bran MD Sep 28, 2017 09:16
[2017-09-28] MEDS ORDERED: AMLO10 PO (11:18)
[2017-09-28] MEDS ORDERED: TOPI25 PO (11:18)
--- NOTE | 2017-09-28 11:20 | HHI.DS ---
Discharge Summary Admission Date Sep 24, 2017 at 13:46 Discharge Date: Sep 28, 2017 Admitting Diagnosis (1) Cervical spondylosis ICD Code: M47.812 - Spondylosis without myelopathy or radiculopathy, cervical region (2) Syncope ICD Code: R55 - Syncope and collapse (3) Headache ICD Code: R51 - Headache (4) Carotid artery disease ICD Code: I77.9 - Disorder of arteries and arterioles, unspecified (5) Altered mental status ICD Code: R41.82 - Altered mental status, unspecified Status: Acute (6) Chest tightness ICD Code: R07.89 - Other chest pain (7) Hypokalemia ICD Code: E87.6 - Hypokalemia Procedures none Brief History - From Admission 62-year-old white female being admitted for loss of consciousness. Patient was in her usual state of health until she started experiencing a headache and some vomiting yesterday. This subsided on its own. This morning she was on her way to the hospital to pick her own up but she again experienced a occipital headache with some nausea and vomiting along with realizing she had difficulty swallowing. She reports having vague memory when she arrives into the hospital parking lot and was sitting in the car when she thinks she had passed out, she had not try to get out the vehicle at that time. She was able to speed dial her who was hospitalized here, then called his daughter and family member saying that she stuck in the parking lot. ED emergency response team was called. During this timeframe patient says she vaguely remembers trying to honked the horn, had some left-sided numbness and weakness -overall the entire incident is a memory blur. The only thing the patient clearly recalls is fully coming to consciousness inside the emergency department, at which point she had to take a few minutes to regain her orientation anyway. Says at this time she still has a little headache but is not vomiting anymore. She denies recalling any slurred speech. She thinks she had passed out but is unsure for how long. Denies any tongue biting or urinary incontinence. Patient denies this ever occurring in the past except for one time when she was lifting sandbags on her own and had passed out multiple times. no acute vision changes. In the emergency department supervisor CT was performed which was negative. EKG was performed which I independently reviewed and shows no acute changes. Chest x- ray is negative. Blood work overall is also negative. Patient denies ever having any strokes or mini strokes or abnormal heart rhythms or heart catheterizations in the past. Patient does admit that she was discontinued off of her atorvastatin due to impaired LFTs. Currently her LFTs are good. CBC/BMP: 09/24/17 1130 09/27/17 1235 Significant Findings Laboratory Tests Test 09/26/17 10:40 09/27/17 12:35 Random Glucose 150 MG/DL (74-106) Aspartate Amino Transf (AST/SGOT) 57 U/L (15-37) Alanine Aminotransferase (ALT/SGPT) 65 U/L (10-53) Potassium Level 3.0 MEQ/L (3.5-5.1) Estimat Glomerular Filtration Rate 75 ML/MIN (>89) 72 ML/MIN (>89) Chloride Level 109 MEQ/L (98-107) Imaging Last Impressions Cervical Spine X-Ray 09/27/17 0000 Signed Impressions: CONCLUSION: No acute cervical spine abnormality is identified to the C7 level on these late ral projections. Cervical Spine MRI 09/26/17 0000 Signed Impressions: CONCLUSION: 1. Small central/right paracentral protrusion at C5-C6 abuts the ventral cord and causes cord flattening. Mild neural foraminal narrowing on the right at C5- 6. 2. The remainder of the cervical spinal cord is otherwise unremarkable Neck CTA 09/25/17 0000 Signed Impressions: CONCLUSION: 1. 70% stenosis within the left proximal internal carotid artery. 2. No significant stenosis right internal carotid artery. Head Magnetic Resonance Angiography 09/25/17 0000 Signed Impressions: CONCLUSION: 1. Focal area of mild narrowing involving the right P1 segment of posterior ce rebral artery. 2. Otherwise unremarkable MRA of the brain. Brain MRI 09/25/17 0000 Signed Impressions: CONCLUSION: 1. No acute intracranial abnormality. 2. No acute infarction. 3. Partially empty sella. Head CT 09/24/17 1118 Signed Impressions: CONCLUSION: 1. Unremarkable CT scan of the brain. Chest X-Ray 09/24/17 1118 Signed Impressions: CONCLUSION: No acute cardiopulmonary findings. Lumbar Puncture Fluoroscopy 09/24/17 0000 Signed Impressions: CONCLUSION: 1. Uncomplicated fluoroscopically guided lumbar puncture with pressures as abo ve. Carotid Artery Ultrasound 09/24/17 0000 Signed Impressions: CONCLUSION: Right Internal Carotid Artery: No evidence of hemodynamically significant lesio n with less than 50% stenosis. Left Internal Carotid Artery: Findings of high-grade stenosis greater than 70%. CT angiography of the cervicobrachial arch and carotid arteries is recommended for further evaluation if clinically indicated. PE at Discharge GENERAL: WN, WD female resting in bed in NAD. LUNGS: CTAB without wheezes or crackles. ABDOMEN: +BS, soft, NT, ND. EXTREMITIES: No LE edema. 2+ pedal pulses. NEURO: Awake and alert. 5/5 UE and LE strength. PSYCH: Appropriate mood and affect. Hospital Course 62 YOWF with history of DM, HTN, and HLD admitted on 09/24 for headache, vomiting , and questionable syncope. 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 Vascular surgery consulted and do not feel this is the cause of her symptoms and therefore her carotid stenosis can be followed as an outpatient. - Echo showing mild concentric LVH, normal LV size, and EG 65-70% - Neurology consulted for further eval, MRI C-spine ordered showing small central/right paracentral protrusion at C5-C6 causing some cord flattening and mild neural foraminal narrowing on the right at C5-C6; no surgicl remanagement at this time Patient to follow up as OP with neurosurgery - Monitor on telemetry Occipital headache - Migraine vs. possible ICH vs. CVA - CT head negative - MRI negative except for partially empty sella - Plan for cervical spine Xray with flexion and extension b/o sx of intermittent numbness and BLE weakness and neurosurgery evaluation PT for cervical spondylosis and start topamax for the occipital neuralgia headaches. If no improvement in several weeks, consult pain management for occipital nerve block - Started topiramate - If no imprpvement might consider pain management follow up - S/P LP on 09/24, unremarkable CSF studies - Neurochecks - Neuro consulted and ff . To follow up as OP [facility] neuro Neurosurgeon consulted for cervical spondylosis - Tylenol PRN Diabetes mellitus type 2 - SSI per protocol Hypertension - BPs improved after increasing Amlodipine to 10 mg daily - Continue home Losartan - Continue to monitor Hyperlipidemia - D/C statin as LFTs increased - F/U LFTs as outpatient Depression - Continue home Remeron Hypokalemia - Potassium 3.0 - Replete with 40 meq KCl PO - Recheck BMP Improved. Cleared by consultants for DC to follow up as OP with PCP and consultants. Pt Condition on Discharge: Stable Discharge Disposition: Discharge Home Discharge Time: > 30 minutes Discharge Instructions DIET: Follow Instructions for: Heart Healthy Diet, Diabetic Diet Activities you can perform: Regular-No Restrictions Follow up Referrals: Neurology - 1 Week with Julius Glynn MD PhD Neurosurgery - 1 Week Pain Management - 3 Weeks PCP Follow-up - 2-3 Days Vascular Surgery - 1 Month @ Vascular Surgery with Arthur Christensen MD Your follow up appointment with a surveillance Carotid Duplex is scheduled on at 11:00 New Medications: Amlodipine (Norvasc) 10 Mg Tab 10 MG PO DAILY for Blood Pressure Management, #30 TAB Topiramate (Topamax) 25 Mg Tab 25 MG PO Q12HR for headache , #60 TAB Continued Medications: Atorvastatin (Atorvastatin) 80 Mg Tab 80 MG PO HS for Cholesterol Management, #30 TAB 0 Refills Cholecalciferol (Vitamin D3) 5,000 Unit Cap 5000 UNITS PO DAILY for Nutritional Supplement, #30 CAP 0 Refills Garlic (Garlic Oil 1000) 1,000 Mg Cap 1000 TAB PO DAILY Losartan-Hydrochlorothiazide (Losartan-Hydrochlorothiazide) 100-25 Mg Tab 1 TAB PO DAILY for Blood Pressure Management, #30 TAB 0 Refills Metformin (Metformin) 500 Mg Tab 500 MG PO BIDPC for Blood Sugar Management, #60 TAB 0 Refills With meals Mirtazapine (Mirtazapine) 15 Mg Tab 15 MG PO HS for Depression Control, #30 TAB 0 Refills [place]-3 Fatty Acids (Fish Oil 1200 mg) 360 Mg-1,200 Mg Cap 1 CAP PO DAILY Pantoprazole (Protonix) 40 Mg Tab 40 MG PO DAILY for Reflux, #30 TAB 0 Refills Discontinued Medications: Amlodipine (Norvasc) 5 Mg Tab 5 MG PO DAILY for Blood Pressure Management, #30 TAB 0 Refills Denisse Bran MD Sep 28, 2017 11:20
[2017-09-28 13:23] LABS: ALBUMIN CSF 17.1 mg/dL (<=27.0); IGG CSF 1.2 mg/dL (<=8.1); IGG INDEX CSF 0.54 (<=0.85); IGG/ALBUMIN CSF 0.07 (<=0.21); IGG/ALBUMIN SERUM 0.13 (<=0.40)
--- NOTE | 2017-09-28 14:07 | PD.CONS ---
History of Present Illness Service Neurosurgery Consult Requested By Neurology Reason for Consult C5-6 disc herniation Primary Care Physician Unknown Diagnoses: History of Present Illness 62-year-old female who presented to emergency room 4 days ago with complaints of headaches with associated nausea and also had a syncopal episode where she lost consciousness. Relates some numbness that spread from the fingers to the forearm but not radicular symptoms which is transient and has resolved. Relates over a year ago some transient numbness in her feet and hands which also resolved. She has chronic biceps weakness and has had right biceps surgery but not the left one. Also has some weakness in left leg from lumbar spine surgery and residual radiculopathy. Chronic urinary incontinence related to multiple bladder surgeries. Complains of some lightheadedness and dizziness along with some neck pain but no radiculopathy. She is found to have a 70% left carotid artery stenosis all the MRI scan of the brain does not reveal any stroke. She is found to have moderate C5-6 disc herniation with ventral thecal sac compression but still has CSF space posterior to the spinal cord. She has been evaluated by vascular surgery and neurology. Review of Systems Constitutional: COMPLAINS OF: Dizziness, Change in appetite, DENIES: Diaphoretic episodes, Fatigue, Fever, Weight gain, Weight loss, Chills, Night Sweats Endocrine: DENIES: Abnorml menstrual pattern, Heat/cold intolerance, Polydipsia , Polyuria, Polyphagia Eyes: DENIES: Blurred vision, Diplopia, Eye inflammation, Eye pain, Vision loss , Photosensitivity, Double Vision Ears, nose, mouth, throat: COMPLAINS OF: Vertigo, DENIES: Tinnitus, Hearing loss, Nasal discharge, Oral lesions, Throat pain, Hoarseness, Ear Pain, Running Nose, Epistaxis, Sinus Pain, Toothache, Odynophagia Respiratory: DENIES: Apneas, Cough, Snoring, Wheezing, Hemoptysis, Sputum production, Shortness of breath Cardiovascular: COMPLAINS OF: Syncope, DENIES: Chest pain, Palpitations, Dyspnea on Exertion, PND, Lower Extremity Edema, Orthopnea, Claudication Gastrointestinal: COMPLAINS OF: Nausea, DENIES: Abdominal pain, Black stools, Bloody stools, Constipation, Diarrhea, Vomiting, Difficulty Swallowing, Anorexia Genitourinary: COMPLAINS OF: Urinary frequency, Urinary incontinence, Urgency, DENIES: Abnormal vaginal bleeding, Dysmenorrhea, Dyspareunia, Sexual dysfunction , Hematuria, Dysuria, Nocturia, Vaginal discharge Musculoskeletal: COMPLAINS OF: Muscle aches, Back pain, Neck pain, DENIES: Joint pain, Stiffness, Joint Swelling Integumentary: DENIES: Abnormal pigmentation, Pruritus, Rash, Nail changes, Breast masses, Breast skin changes, Nipple discharge Hematologic/lymphatic: DENIES: Bruising, Lymphadenopathy Immunologic/allergic: DENIES: Eczema, Urticaria Neurologic: COMPLAINS OF: Headache, Localized weakness, Paresthesias, DENIES: Abnormal gait, Seizures, Speech Problems, Tremor, Poor Balance Psychiatric: DENIES: Anxiety, Confusion, Mood changes, Depression, Hallucinations, Agitation, Suicidal Ideation, Homicidal Ideation, Delusions Past Family Social History Allergies: Coded Allergies: No Known Allergies (Verified Allergy, Unknown, 09/24/17) Past Medical History Bilateral carpal tunnel release, bilateral biceps tear/injury with a residual chronic left biceps weakness for the past several years; [place] with residual chronic back pain and left lower extremity radiculopathy with weakness; hypertension; diabetes; left carotid artery stenosis; hyperlipidemia; gastroesophageal reflux; right biceps surgery, multiple bladder surgeries with urge incontinence Reported Medications Topamax (Topiramate) 25 Mg Tab 25 Mg PO Q12HR Norvasc (Amlodipine Besylate) 10 Mg Tab 10 Mg PO DAILY Fish Oil 1200 mg ([place]-3 Fatty Acids) 360 Mg-1,200 Mg Cap 1 Cap PO DAILY Garlic Oil 1000 (Garlic) 1,000 Mg Cap 1,000 Tab PO DAILY Atorvastatin (Atorvastatin Calcium) 80 Mg Tab 80 Mg PO HS Losartan-Hydrochlorothiazide 100-25 Mg Tab 1 Tab PO DAILY Mirtazapine 15 Mg Tab 15 Mg PO HS Metformin (Metformin HCl) 500 Mg Tab 500 Mg PO BIDPC With meals Protonix (Pantoprazole Sodium) 40 Mg Tab 40 Mg PO DAILY Vitamin D3 (Cholecalciferol) 5,000 Unit Cap 5,000 Units PO DAILY Social History She is and denies smoking history and drinks alcohol on social basis Physical Exam Vital Signs Vital Signs Date Time Temp Pulse Resp B/P (MAP) Pulse Ox O2 Delivery O2 Flow Rate FiO2 09/28/17 11:41 98.0 89 12 172/85 (114) 94 09/28/17 08:24 98.0 77 24 196/99 (131) 97 09/28/17 04:50 98.3 65 16 173/99 (123) 96 09/28/17 01:44 97.6 67 16 178/85 (116) 96 09/28/17 01:15 76 09/27/17 21:21 69 09/27/17 21:05 98.1 70 16 162/89 (113) 96 Manual Cuff/Auscultation 09/27/17 16:00 99.1 78 17 148/70 (96) 95 Physical Exam GENERAL: This is a well-nourished, well-developed patient, in no apparent distress. SKIN: No rashes, ecchymoses or lesions. Cool and dry. HEAD: Atraumatic. Normocephalic. No temporal or scalp tenderness. EYES: Pupils equal round and reactive. Extraocular motions intact. No scleral icterus. No injection or drainage. ENT: Nose without bleeding, purulent drainage or septal hematoma. Throat without erythema, tonsillar hypertrophy or exudate. Uvula midline. Airway patent. NECK: Trachea midline. No JVD or lymphadenopathy. Supple, nontender, no meningeal signs. CARDIOVASCULAR: Regular rate and rhythm without murmurs, gallops, or rubs. RESPIRATORY: Clear to auscultation. Breath sounds equal bilaterally. No wheezes , rales, or rhonchi. GASTROINTESTINAL: Abdomen soft, non-tender, nondistended. No hepato-splenomegaly , or palpable masses. No guarding. MUSCULOSKELETAL: Extremities without clubbing, cyanosis, or edema. No joint tenderness, effusion, or edema noted. No calf tenderness. Negative Homans sign bilaterally. NEUROLOGICAL: Awake and alert. Cranial nerves II through XII intact. Mild chronic left biceps weakness and left dorsiflexion weakness; otherwise 5/5 strength in the upper and lower extremities. Negative Chris's and negative Babinski. Intact light touch sensation. Speech is fluent. Laboratory Date/Time Source Procedure Growth Status 09/24/17 15:50 Cerebral Spinal Fluid Lumbar Puncture Gram Stain - Final Complete 09/24/17 15:50 Cerebral Spinal Fluid Lumbar Puncture CSF Culture - Final NO GROWTH IN 72 HOURS Complete Result Diagram: 09/24/17 1130 09/27/17 1235 Imaging MRI scan of the cervical spine personally reviewed from 09/26/2017 reveals a moderate central C5-6 disc herniation ventral thecal sac compression. There is loss of CSF space ventrally to the cord but there is still CSF space posteriorly. I also agree with the radiologist interpretation of the imaging studies as below: Last Impressions Cervical Spine X-Ray 09/27/17 Signed Impressions: CONCLUSION: No acute cervical spine abnormality is identified to the C7 level on these late ral projections. Cervical Spine MRI 09/26/17 Signed Impressions: CONCLUSION: 1. Small central/right paracentral protrusion at C5-C6 abuts the ventral cord and causes cord flattening. Mild neural foraminal narrowing on the right at C5- 6. 2. The remainder of the cervical spinal cord is otherwise unremarkable Neck CTA 09/25/17 Signed Impressions: CONCLUSION: 1. 70% stenosis within the left proximal internal carotid artery. 2. No significant stenosis right internal carotid artery. Head Magnetic Resonance Angiography 09/25/17 Signed Impressions: CONCLUSION: 1. Focal area of mild narrowing involving the right P1 segment of posterior ce rebral artery. 2. Otherwise unremarkable MRA of the brain. Brain MRI 09/25/17 Signed Impressions: CONCLUSION: 1. No acute intracranial abnormality. 2. No acute infarction. 3. Partially empty sella. Head CT 09/24/171117 Signed Impressions: CONCLUSION: 1. Unremarkable CT scan of the brain. Chest X-Ray 09/24/171117 Signed Impressions: CONCLUSION: No acute cardiopulmonary findings. Lumbar Puncture Fluoroscopy 09/24/17 Signed Impressions: CONCLUSION: 1. Uncomplicated fluoroscopically guided lumbar puncture with pressures as abo ve. Carotid Artery Ultrasound 09/24/17 Signed Impressions: CONCLUSION: Right Internal Carotid Artery: No evidence of hemodynamically significant lesio n with less than 50% stenosis. Left Internal Carotid Artery: Findings of high-grade stenosis greater than 70%. CT angiography of the cervicobrachial arch and carotid arteries is recommended for further evaluation if clinically indicated. Assessment and Plan Assessment and Plan 1. Cervical C5-6 moderate central disc herniation with ventral thecal sac compression although does not appear to be myelopathic on examination. At this point recommended continued conservative management with physical therapy and pain management as needed. If symptoms continue to worsen or not respond to conservative treatment measures then she can follow-up in the office for discussion of possible surgical intervention. 2. Chronic low back pain with a history of lumbar fusion with the left lower extremity radiculopathy and subjective weakness. Continue with the pain management and physical therapy. 3. High-grade left carotid artery stenosis, follow-up with vascular surgery as scheduled. I discussed the findings at length with the patient along the treatment options and she prefers conservative management for her cervical disc herniation and chronic low back pain. Currently she can be discharged home once cleared by the medical/neurology service and will be seen on an as-needed basis. Ángel Medrano MD Sep 28, 2017 14:07
[2017-09-28] MEDS: cloNIDine HCL 0.1 MG TAB PO PRN (15:53)
[2017-09-28] MEDS: ENOXAPARIN SODIUM 40 MG/0.4 ML SYRINGE SQ SCH (17:26)
== END 2017-09-28 21:38 | disposition home or self-care (01) ==
LOC: NEPE 11:10 → NEDA 13:46 → NEPFCDU 15:20
PROVIDERS: ADMIT Hospitalist; ATTEND Hospitalist
DX: R41.82 Altered mental status, unspecified (principal); R51 Headache; R55 Syncope and collapse; M54.81 Occipital neuralgia; I65.22 Occlusion and stenosis of left carotid artery; M47.812 Spondylosis without myelopathy or radiculopathy, cervical region; M50.222 Other cervical disc displacement at C5-C6 level; M54.10 Radiculopathy, site unspecified; R07.89 Other chest pain; I25.10 Atherosclerotic heart disease of native coronary artery without angina pectoris; I77.9 Disorder of arteries and arterioles, unspecified; I10 Essential (primary) hypertension; E87.6 Hypokalemia; E78.5 Hyperlipidemia, unspecified; E11.9 Type 2 diabetes mellitus without complications; F32.9 Major depressive disorder, single episode, unspecified; K21.9 Gastro-esophageal reflux disease without esophagitis; R32 Unspecified urinary incontinence; R56.9 Unspecified convulsions; Z95.1 Presence of aortocoronary bypass graft; Z98.1 Arthrodesis status; Z23 Encounter for immunization
CPT/HCPCS: 62270; 70450; 70498; 70544; 70551; 71045; 72040; 72141; 77003; 80048; 80053; 81001; 82040; 82042; 82550; 82552; 82784; 82945; 82948; 83690; 83735; 84157; 84443; 84484; 85025; 85610; 85730; 87070; 87205; 89051; 92610; 93005; 93306; 93880; 95819; 96361; 96372; 96374; 97161; 97165; 97535; 99285; G0008; G0378; G8987; G8988; G8996; G8997; G8998; J0780; J1200; J1650; J1885; J7030; Q2038; Q9967; 90471; 90686